=== PATIENT | male | born 1945 | race Asian ===

== ENCOUNTER 2021-07-06 10:39 | Inpatient (IN) | payer MEDICARE, BC ==
[~2021-07-06] VITALS: Ht 172.7 cm; Wt 74.0 kg
--- NOTE | 2021-07-06 10:43 | NUR ---
TO ER BED 9, BIBRA 839 FROM HOME C/O LOWER BACK PAIN AND FAILURE TO THRIVE PER EMS HE FELL IN THE TUB 4 MONTHS AGO. PT TOOK NORCO 10/ 1 HR CUSTOM CAR BUILDER, AAOX3, BREATHING EVEN AND NON LABORED, CONNECTED TO MONITOR, AWAITING MD MORTON
--- NOTE | 2021-07-06 11:03 | NUR ---
DR NEFF AT BEDSIDE FOR EVAL
--- NOTE | 2021-07-06 11:26 | NUR ---
COVID ANTIGEN SWAB DONE AND SENT TO THE LAB
[2021-07-06] MEDS ORDERED: HYDR-4076 PO (11:28)
[2021-07-06] MEDS ORDERED: ATOR40TA PO (11:28)
[2021-07-06] MEDS ORDERED: DILT180C66 PO (11:28)
[2021-07-06] MEDS ORDERED: APIX5TAB PO (11:28)
[2021-07-06] MEDS ORDERED: BRIM10DR EACHEYE (11:28)
--- NOTE | 2021-07-06 11:28 | NUR ---
URINE COLLECTED AND SENT TO LAB
[2021-07-06 11:59] LABS: BASOPHILS % (AUTO) 0.1 % (0.0-2.0); HEMATOCRIT 34 % (39-51); LYMPHOCYTES # (AUTO) 1.1 K/uL (0.8-4.8); LYMPHOCYTES % (AUTO) 8.8 % (20.0-44.0); MEAN CORPUSCULAR HGB CONC 33 g/dl (31.0-36.0); MEAN CORPUSCULAR VOLUME 89 fL (80-96); MONOCYTES # (AUTO) 0.8 K/uL (0.1-1.30); MONOCYTES % (AUTO) 5.8 % (2.0-12.0); NEUTROPHILS # (AUTO) 11.2 K/uL (1.8-8.9); NEUTROPHILS % (AUTO) 85.3 % (43.0-81.0); PLATELET COUNT (AUTO) 287 K/uL (150-450); RED BLOOD CELL COUNT(AUTO) 3.77 MIL/uL (4.5-6.0); WHITE BLOOD COUNT (AUTO) 13.1 K/uL (4.3-11.0)
[2021-07-06 12:01] LABS: BILIRUBIN,URINE NEGATIVE (NEGATIVE); COLOR,URINE ORANGE (YELLOW); LEUKOCYTE ESTERASE ,URINE TRACE (NEGATIVE); NITRITE, URINE NEGATIVE (NEGATIVE); PROTEIN,URINE TRACE mg/dl (NEGATIVE); UGLUCOSE NEGATIVE (NEGATIVE)
--- NOTE | 2021-07-06 12:10 | NUR ---
TAKEN TO CT
[2021-07-06 12:15] LABS: BACTERIA,URINE 4+ /HPF (None Seen); RBC,URINE 0-2 /HPF (0-2)
[2021-07-06 12:27] LABS: CALCIUM, SERUM 8.7 mg/dL (8.5-10.1); CREATININE 1.1 mg/dL (0.6-1.3); POTASSIUM 4.7 mmol/L (3.5-5.1)
[2021-07-06 12:33] LABS: ALBUMIN 2.1 g/dL (3.4-5.0); BILIRUBIN,DIRECT 0.4 mg/dL (0.0-0.2); BILIRUBIN,TOTAL 0.9 mg/dL (0.2-1.0); TOTAL PROTEIN, SERUM 7.6 g/dL (6.4-8.2)
--- NOTE | 2021-07-06 13:26 | NUR ---
TYLENOL 1000 MG PO ONCE PER DR NEFF. THE ORDER IS READ BACK, VERIFIED. NOTED AND CARRIED OUT.
[2021-07-06] MEDS ORDERED: ACETAMINOPHEN ES 500 MG TABLET ONE (13:29)
[2021-07-06] MEDS ORDERED: VANCOMYCIN 1 GM in IV D5W 250 ML IV ONE (13:30)
[2021-07-06] MEDS ORDERED: CEFEPIME 1 GM in IV D5W 50 ML IV ONE (13:30)
[2021-07-06] MEDS ORDERED: ACETAMINOPHEN ES 500 MG TABLET PO ONE (13:30)
[2021-07-06] MEDS ORDERED: IV NS 0.9% 500 ML BAG IV ONE ×2 (14:00→16:00)
--- NOTE | 2021-07-06 14:22 | NUR ---
PAGED EPIC HOSPICE RN.
--- NOTE | 2021-07-06 14:42 | NUR ---
PER HOUSE SUP NO ROOM AVAILABLE FOR ADMISSION.
[2021-07-06] MEDS ORDERED: ONDANSETRON HCL/PF 4 MG/2 ML VIAL IVP PRN (15:00)
[2021-07-06] MEDS: IV NS 0.9% 1,000 ML IV PRN ×2 (15:09→21:31)
--- NOTE | 2021-07-06 15:31 | NUR ---
PATIENT ALERT, TALKING TO HIS NEPHEW ON HIS CELLPHONE NEPHEW NAME HUNG [phone]
[2021-07-06] MEDS: CEFTRIAXONE 1 G in IV D5W 50 ML IV SCH (16:38)
[2021-07-06] MEDS: AZITHROMYCIN 500 MG in IV D5W 250 ML IV SCH (17:00)
--- NOTE | 2021-07-06 18:31 | NUR ---
ROOM 324-2
--- NOTE | 2021-07-06 18:54 | NUR ---
PER NURSING SUP TO GIVE REPORT AFTER CHANGE OF SHIFT
--- NOTE | 2021-07-06 19:43 | NUR ---
REPORT GIVEN TO ULICES Duggan RN FOR HERMELINDO
[2021-07-06 21:00] VITALS: BP 124/68
--- NOTE | 2021-07-06 21:00 | NUR ---
TELE/RN ADMITTING NOTE RECEIVED REPORT FROM TOOL WORKER FELICIA. PATIENT ARRIVED TO UNIT VIA GURNEY AND 2 STAFF MEMBERS. PATIENT IS BEING ADMITTED WITH DX OF SEPSIS. PATIENT IS ALERT AND ORIENTED X 2. ABLE TO MAKE NEEDS KNOWN. CONFUSED AT TIMES. ENDORSES MILD BACK PAIN - WILL ADMINISTER PRN PAIN MEDICATION PER MD ORDER. CONTINUES ON O2 3L VIA NC WITH NO S/SX OF RESPIRATORY DISTRESS NOTED. IV ACCESS TO RIGHT AC #18G INTACT, PATENT AND SALINE LOCKED. CONTINUES ON IV ABX. SKIN CHECK PERFORMED ON ADMISSION WITH NO SKIN ISSUES NOTED. TELE MONITOR APPLIED WITH CURRENT READING SR WITH BBB HR 90. ALL BELONGINGS AT PATIENT'S BEDSIDE. PATIENT ORIENTED TO ROOM, CALL LIGHT AND UNIT. BED ALARM ON FOR SAFETY. CALL LIGHT WITHIN REACH. ASPIRATION, FALL AND SAFETY PRECAUTIONS MAINTAINED. WILL CONTINUE TO MONITOR.
--- NOTE | 2021-07-06 21:13 | NUR ---
PT TRANFERRED TO 3W VIA ACLS PROTOCOL. VSS. ALL BELONGINGS WITH PT.
[2021-07-06 21:26] VITALS: BP 124/68
[2021-07-06] MEDS: ACETAMINOPHEN 325 MG TABLET PO PRN (21:31)
[2021-07-07 00:55] VITALS: BP 106/58
[2021-07-07 04:40] VITALS: BP 115/63
[2021-07-07 06:46] LABS: BASOPHILS % (AUTO) 0.4 % (0.0-2.0); EOSINOPHILS % (AUTO) 1.8 % (0.0-6.0); HEMATOCRIT 32 % (39-51); HEMOGLOBIN 10.3 g/dL (13.5-17.5); LYMPHOCYTES # (AUTO) 1.3 K/uL (0.8-4.8); LYMPHOCYTES % (AUTO) 10.5 % (20.0-44.0); MEAN CORPUSCULAR HGB CONC 32 g/dl (31.0-36.0); MEAN CORPUSCULAR VOLUME 91 fL (80-96); MONOCYTES # (AUTO) 0.8 K/uL (0.1-1.30); MONOCYTES % (AUTO) 6.7 % (2.0-12.0); NEUTROPHILS % (AUTO) 80.6 % (43.0-81.0); PLATELET COUNT (AUTO) 245 K/uL (150-450); RED BLOOD CELL COUNT(AUTO) 3.52 MIL/uL (4.5-6.0); WHITE BLOOD COUNT (AUTO) 12.5 K/uL (4.3-11.0)
--- NOTE | 2021-07-07 07:32 | NUR ---
URBAN PLANNING PROFESSOR OPENING NOTES RECEIVED PATIENT AWAKE IN BED. PATIENT IS ALERT AND ORIENTED TIMES 2. NO PAIN NOTED. NO SOB NOTED. NO DISTRESS NOTED. ON TELE MONITOR . NO ACUTE DISTRESS NOTED. IV ACCESS ON THE RIGHT AC # 18 INTACT. RUNNING NS AT 75 ML/HR. ALL SAFETY MEASURES IN PLACE. BED LOCKED IN THE LOWEST POSITION. CALL LIGHT AND TABLE IN EASY REACH. WILL CONTINUE TO MONITOR.
[2021-07-07 07:43] LABS: CALCIUM, SERUM 7.9 mg/dL (8.5-10.1); CREATININE 0.9 mg/dL (0.6-1.3); MAGNESIUM 2.2 mg/dL (1.8-2.4); POTASSIUM 4.7 mmol/L (3.5-5.1)
[2021-07-07 08:00] VITALS: BP 133/61
[2021-07-07] MEDS: ACETAMINOPHEN 325 MG TABLET PO PRN ×2 (11:56→20:51)
[2021-07-07 12:00] VITALS: BP 136/73
[2021-07-07] MEDS: hydrALAZINE HCL 25 MG TABLET PO SCH ×2 (13:52→17:03)
[2021-07-07] MEDS: DILTIAZEM HCL CD 180 MG PO SCH (13:53)
[2021-07-07] MEDS: HYDROCODONE/APAP 5/325MG TABLET PO PRN ×3 (13:56→23:40)
--- NOTE | 2021-07-07 15:10 | NUR ---
SS Note: Spoke with pt.'s nurse regarding pt.'s placement upon discharge. Pt. is able to go to [facility] once medically cleared [[phone], Geeat].
[2021-07-07 16:00] VITALS: BP 127/55
[2021-07-07] MEDS: CEFTRIAXONE 1 G in IV D5W 50 ML IV SCH (16:43)
[2021-07-07] MEDS: BRIMONIDINE TARTRATE OPHT SOLN 5 ML BOTTLE EACHEYE SCH (17:02)
[2021-07-07] MEDS: APIXABAN 5 MG TABLET PO SCH (17:04)
[2021-07-07] MEDS: AZITHROMYCIN 500 MG in IV D5W 250 ML IV SCH (17:23)
[2021-07-07] MEDS: ATORVASTATIN 40 MG TABLET PO SCH (17:45)
--- NOTE | 2021-07-07 19:30 | NUR ---
LEAD BUSINESS SYSTEMS ANALYST CLOSING NOTES PATIENT AWAKE IN BED. PATIENT IS ALERT AND ORIENTED TIMES 2. NO PAIN NOTED. NO SOB NOTED. NO DISTRESS NOTED. ON TELE MONITOR . NO ACUTE DISTRESS NOTED. IV ACCESS ON THE RIGHT AC # 18 INTACT. RUNNING NS AT 75 ML/HR. ALL DUE MEDS GIVEN ORDERED.ALL SAFETY MEASURES IN PLACE. BED LOCKED IN THE LOWEST POSITION. CALL LIGHT AND TABLE IN EASY REACH. WILL ENDORSE FOR HERMELINDO..
[2021-07-07 20:00] VITALS: BP 101/41
[2021-07-07] MEDS ORDERED: VANCOMYCIN 1.25 GM in IV D5W 250 ML IV ONE (21:00)
[2021-07-08] MEDS: HYDROCODONE/APAP 5/325MG TABLET PO PRN ×2 (05:17→09:29)
[2021-07-08] MEDS: IV NS 0.9% 1,000 ML IV PRN (05:17)
--- NOTE | 2021-07-08 06:20 | NUR ---
TEXT DR. PEREZ FOR MRI APPROVAL.
[2021-07-08 06:27] LABS: BASOPHILS # (AUTO) 0.1 K/uL (0.0-0.2); BASOPHILS % (AUTO) 0.7 % (0.0-2.0); EOSINOPHILS % (AUTO) 1.8 % (0.0-6.0); HEMATOCRIT 27 % (39-51); HEMOGLOBIN 8.9 g/dL (13.5-17.5); LYMPHOCYTES # (AUTO) 1.2 K/uL (0.8-4.8); MEAN CORPUSCULAR HGB CONC 33 g/dl (31.0-36.0); MEAN CORPUSCULAR VOLUME 89 fL (80-96); MONOCYTES # (AUTO) 0.6 K/uL (0.1-1.30); MONOCYTES % (AUTO) 6.6 % (2.0-12.0); NEUTROPHILS # (AUTO) 6.6 K/uL (1.8-8.9); NEUTROPHILS % (AUTO) 76.9 % (43.0-81.0); PLATELET COUNT (AUTO) 243 K/uL (150-450); RED BLOOD CELL COUNT(AUTO) 3.01 MIL/uL (4.5-6.0); WHITE BLOOD COUNT (AUTO) 8.6 K/uL (4.3-11.0)
--- NOTE | 2021-07-08 06:30 | NUR ---
TELE/RN CLOSING NOTE PATIENT CURRENTLY RESTING IN BED. ALERT AND ORIENTED X 2. ABLE TO MAKE NEEDS KNOWN. DENIES PAIN AT THIS TIME. CONTINUES ON O2 3L VIA NC WITH NO S/SX OF RESPIRATORY DISTRESS NOTED. IV ACCESS TO RIGHT AC #18G INTACT AND PATENT. CONTINUES ON IVF NS @ 75ML/HR. CONTINUES ON IV ABX. CONTINUES ON NPO STATUS FOR MRI THIS AM. CALL LIGHT WITHIN REACH. ASPIRATION, FALL AND SAFETY PRECAUTIONS MAINTAINED. WILL ENDORSE PLAN OF CARE TO ONCOMING SHIFT.
--- NOTE | 2021-07-08 06:32 | NUR ---
MRI APPROVED,INSTRUMENT MAN NOTIFIED
[2021-07-08 06:58] LABS: CALCIUM, SERUM 7.5 mg/dL (8.5-10.1); CARBON DIOXIDE 23 mmol/L (21-32); CHLORIDE 104 mmol/L (98-107); CREATININE 0.8 mg/dL (0.6-1.3); GLUCOSE 92 mg/dL (74-106); PHOSPHORUS 3.2 mg/dL (2.5-4.9); POTASSIUM 4.1 mmol/L (3.5-5.1); SODIUM SERUM 133 mmol/L (136-145); UREA NITROGEN, BLOOD 18 mg/dL (7-18)
--- NOTE | 2021-07-08 07:25 | NUR ---
INJECTION MOLD TOOLING TECHNICIAN OPENING NOTE RECEIVED PATIENT ASLEEP IN BED, EASILY AROUSE. ALERT AND ORIENTED X 2. ABLE TO MAKE NEEDS KNOWN. ON O2 AT 3L VIA NC WITH NO S/SX OF RESPIRATORY DISTRESS NOTED. BREATHING UNLABORED. ON TELE MONITOR WITH CURRENT READING OF NORMAL SR, HR 74. IV ACCESS TO RIGHT AC #18G INTACT AND PATENT WITH NS @ 75ML/HR. PT ON NPO STATUS FOR MRI THIS AM. SAFETY MEASURES IN PLACE: BED IN LOWEST AND LOCKED POSITION, SIDE RAILS UP X2, CALL LIGHT WITHIN REACH. WILL CONTINUE MONITOR PT AND WITH PLAN OF CARE.
[2021-07-08 08:00] VITALS: BP 116/60
[2021-07-08] MEDS: DILTIAZEM HCL CD 180 MG PO SCH (09:24)
[2021-07-08] MEDS: hydrALAZINE HCL 25 MG TABLET PO SCH ×2 (09:25→17:11)
[2021-07-08] MEDS: APIXABAN 5 MG TABLET PO SCH ×2 (09:26→17:13)
[2021-07-08] MEDS: VANCOMYCIN 0.75 GM in IV D5W 250 ML IV SCH ×2 (09:32→21:09)
[2021-07-08] MEDS: BRIMONIDINE TARTRATE OPHT SOLN 5 ML BOTTLE EACHEYE SCH ×2 (09:48→17:14)
[2021-07-08 12:00] VITALS: BP 125/62
[2021-07-08 16:00] VITALS: BP 140/64
[2021-07-08] MEDS: ACETAMINOPHEN 325 MG TABLET PO PRN (16:02)
[2021-07-08] MEDS: CEFTRIAXONE 1 G in IV D5W 50 ML IV SCH (16:02)
[2021-07-08] MEDS ORDERED: GADOTERATE MEGLUMINE 10 MMOL/20 ML VIAL IV ONE (17:10)
[2021-07-08] MEDS: ATORVASTATIN 40 MG TABLET PO SCH (17:11)
--- NOTE | 2021-07-08 19:34 | NUR ---
PROPERTY MANAGEMENT ASSISTANT CLOSING NOTE PATIENT ASLEEP IN BED, EASILY AROUSE. ALERT AND ORIENTED X 2. ABLE TO MAKE NEEDS KNOWN. ON O2 AT 3L VIA NC WITH NO S/SX OF RESPIRATORY DISTRESS NOTED. BREATHING UNLABORED. ON TELE MONITOR WITH CURRENT READING OF NORMAL SR, HR 80. IV ACCESS TO RIGHT AC #18G INTACT AND PATENT WITH NS @ 75ML/HR. TURNED AND REPOSITIONED PT Q2HRS AND NEEDED. ALL NEEDS ATTENDED. SAFETY MEASURES IN PLACE: BED IN LOWEST AND LOCKED POSITION, SIDE RAILS UP X2, CALL LIGHT WITHIN REACH. ENDORSED TO BLOWING WEASAND NURSE FOR CONTINUITY OF CARE.
--- NOTE | 2021-07-08 19:51 | NUR ---
MANAGER HRIS OPENING NOTES: RECEIVED PATIENT SLEEP IN BED COMFORTABLY, BED IN LOW POSITION, CALL LIGHTS WITHIN REACH, NO COMPLAIN OF PAIN AND DISCOMFORT AT THIS TIME, WITH IV LINE AT RAC#18 WITH ONGOING NSS @75ML PER HOUR INFUSING WELL, ON ROOM AIR AT 3LPM SATURATING WELL, ON TELE MONITORING SR-97 WITH PVS, PATIENT KEPT CLEAN AND DRY ALL NEEDS MET WILL CONTINUE TO MONITOR.
[2021-07-08 20:00] VITALS: BP_SYST 124; BP_SYST 129; BP_SYST 132; BP_DIAS 62; BP_DIAS 67
[2021-07-09] VITALS: BP 132/67
[2021-07-09 00:18] VITALS: BP 132/67
[2021-07-09] MEDS: IV NS 0.9% 1,000 ML IV PRN ×2 (00:54→16:53)
[2021-07-09 04:00] VITALS: BP 135/98
--- NOTE | 2021-07-09 06:46 | NUR ---
SHEARING MACHINE OPERATOR CLOSING NOTES: PATIENT SLEEP IN BED COMFORTABLY, AROUSABLE TO VERBAL STIMULI, BED IN LOW POSITION, CALL LIGHTS WITHIN REACH, NO COMPLAIN OF PAIN AND DISCOMFORT AT THIS TIME, ON TELE MONITORING WITH NSR, WITH IV LINE AT RAC#20 WITH ONGOING NSS@75ML PER HOUR INFUSING WELL, PATIENT ON 02 INHALATION AT 3LPM SATURATING WELL, PATIENT KEPT CLEAN AND DRY ALL NEEDS MET ENDORSE TO INCOMING SHIFT.
[2021-07-09 07:22] LABS: BASOPHILS % (AUTO) 0.3 % (0.0-2.0); EOSINOPHILS % (AUTO) 0.1 % (0.0-6.0); HEMATOCRIT 29 % (39-51); HEMOGLOBIN 9.4 g/dL (13.5-17.5); LYMPHOCYTES # (AUTO) 0.9 K/uL (0.8-4.8); LYMPHOCYTES % (AUTO) 7.9 % (20.0-44.0); MEAN CORPUSCULAR HGB CONC 33 g/dl (31.0-36.0); MEAN CORPUSCULAR VOLUME 89 fL (80-96); MONOCYTES # (AUTO) 0.6 K/uL (0.1-1.30); MONOCYTES % (AUTO) 5.5 % (2.0-12.0); NEUTROPHILS # (AUTO) 10.1 K/uL (1.8-8.9); NEUTROPHILS % (AUTO) 86.2 % (43.0-81.0); PLATELET COUNT (AUTO) 263 K/uL (150-450); RED BLOOD CELL COUNT(AUTO) 3.23 MIL/uL (4.5-6.0); WHITE BLOOD COUNT (AUTO) 11.7 K/uL (4.3-11.0)
[2021-07-09 07:32] LABS: CARBON DIOXIDE 21 mmol/L (21-32); CHLORIDE 101 mmol/L (98-107); CREATININE 0.8 mg/dL (0.6-1.3); GLUCOSE 90 mg/dL (74-106); MAGNESIUM 2.1 mg/dL (1.8-2.4); PHOSPHORUS 3.4 mg/dL (2.5-4.9); SODIUM SERUM 130 mmol/L (136-145); UREA NITROGEN, BLOOD 15 mg/dL (7-18)
--- NOTE | 2021-07-09 08:04 | NUR ---
RN OPENING NOTE PATIENT RECEIVED IN BED, AO X 2. ABLE TO RESPONDS ALL STIMULI. IN NO ACUTE DISTRESS NOTED. RESPIRATORY EVEN AND UNLABORED ON OXYGEN AT 3Ls. SKIN IS WARM TO TOUCH, KEEP CLEAN/DRY. KEPT ELEVATED HOB FOR ENSURE AIRWAY AND ASPIRATION PRECAUTION, ALSO LOWEST POSITION OF THE BED, S/R UP X 3, BED ALARM IS ON AT ALL THE TIMES. ALL SAFETY PRECAUTION APPLIED. CALL LIGHT WITHIN REACH, WILL CONTINUE TO MONITOR.
[2021-07-09] MEDS: hydrALAZINE HCL 25 MG TABLET PO SCH ×2 (08:37→17:04)
[2021-07-09] MEDS: BRIMONIDINE TARTRATE OPHT SOLN 5 ML BOTTLE EACHEYE SCH ×2 (08:37→17:07)
[2021-07-09] MEDS: DILTIAZEM HCL CD 180 MG PO SCH (08:38)
[2021-07-09] MEDS: APIXABAN 5 MG TABLET PO SCH ×2 (08:39→17:05)
[2021-07-09] MEDS: VANCOMYCIN 0.75 GM in IV D5W 250 ML IV SCH (09:00)
--- NOTE | 2021-07-09 14:00 | NUR ---
PATIENT HAVING PVC SINCE YESTERDAY, HIGHEST 21/MIN. LATEST BP-128/68, P-85, INFORMED MD, NO NEW ORDER AT THIS TIME. WILL CONTINUE TO MONITOR CLOSELY.
[2021-07-09] MEDS ORDERED: AMPICILLIN 2 GM in IV NS 0.9% 50 ML IV SCH (17:00)
[2021-07-09] MEDS: ATORVASTATIN 40 MG TABLET PO SCH (17:04)
--- NOTE | 2021-07-09 18:05 | NUR ---
RN CLOSING NOTE PATIENT IN BED, IN NO ACUTE DISTRESS OBSERVED. SKIN IS WARM TO TOUCH KEEP CLEAN/DRY, INTACT IV SITE RUNNING NS AT 75 ML/HR. RESPIRATORY EVEN AND UNLABORED ON ROOM AIR. KEPT ELEVATED HOB FOR ENSURE AIRWAY AND ASPIRATION PRECAUTION, AND LOWEST POSITION OF THE BED FOR SAFETY. CALL LIGHT WITHIN REACH, WILL ENDORSE TO BUILDING APPRAISER.
[2021-07-09] MEDS: AMPICILLIN SODIUM INJ 1 GM in IV NS 50 ML IV SCH (18:47)
[2021-07-09 20:00] VITALS: BP 122/68
--- NOTE | 2021-07-09 20:17 | NUR ---
CLOTH HAND OPENING NOTES: RECEIVED PATIENT AWAKE IN BED, BED IN LOW POSITION, CALL LIGHTS WITHIN REACH, NO COMPLAIN OF PAIN AND DISCOMFORT AT THIS TIME, PATIENT IS A/OX2 ON BED REST WITH IV LINE AT R WRIST #22 WITH ONGOING NSS@75ML/HR INFUSING WELL, PATIENT KEPT CLEAN AND DRY ALL NEEDS MET WILL CONTINUE TO MONITOR.
[2021-07-09] MEDS ORDERED: VANCOMYCIN 500 MG in IV D5W 100ml IV SCH (21:00)
[2021-07-10] VITALS: BP 127/57
[2021-07-10] MEDS: AMPICILLIN SODIUM INJ 1 GM in IV NS 50 ML IV SCH ×5 (00:16→23:37)
[2021-07-10] MEDS: MORPHINE SULFATE INJ 2 MG/ML DISP.SYRIN IV PRN ×2 (03:26→16:50)
[2021-07-10 04:00] VITALS: BP 130/62
--- NOTE | 2021-07-10 06:44 | NUR ---
DOWNSTREAM BIOMANUFACTURING TECHNICIAN CLOSING NOTES: PATIENT SLEEP IN BED COMFORTABLY, BED IN LOW POSITION, CALL LIGHTS WITHIN REACH, NO COMPLAIN OF PAIN AND DISCOMFORT AT THIS TIME, ON TELE MONITORING,SR-97 WITH BBB AND PVC, WITH IV LINE AT RIGHT WRIST#22 WITH ONGOING NSS@75ML/HR INFUSING WELL, ON O2 INHALATION AT 3LPM SATURATING WELL, PATIENT KEPT CLEAN AND DRY ALL NEEDS MET ENDORSE TO INCOMING SHIFT.
[2021-07-10 07:01] LABS: CALCIUM, SERUM 7.6 mg/dL (8.5-10.1); CARBON DIOXIDE 22 mmol/L (21-32); CHLORIDE 101 mmol/L (98-107); CREATININE 0.8 mg/dL (0.6-1.3); GLUCOSE 81 mg/dL (74-106); POTASSIUM 3.9 mmol/L (3.5-5.1); SODIUM SERUM 133 mmol/L (136-145); UREA NITROGEN, BLOOD 15 mg/dL (7-18)
--- NOTE | 2021-07-10 07:57 | NUR ---
RN OPENING NOTE PATIENT RECEIVED IN BED, AO X 1-2. ABLE TO RESPONDS ALL STIMULI. IN NO ACUTE DISTRESS NOTED. RESPIRATORY EVEN AND UNLABORED ON OXYGEN AT 3Ls VIA NC, BUT PATIENT KEPT REMOVING OXYGEN. SKIN IS WARM TO TOUCH, KEEP CLEAN/DRY. KEPT ELEVATED HOB FOR ENSURE AIRWAY AND ASPIRATION PRECAUTION, ALSO LOWEST POSITION OF THE BED, S/R UP X 3, BED ALARM IS ON AT ALL THE TIMES. ALL SAFETY PRECAUTION APPLIED. CALL LIGHT WITHIN REACH, WILL CONTINUE TO MONITOR.
[2021-07-10] MEDS: DILTIAZEM HCL CD 180 MG PO SCH (09:00)
[2021-07-10] MEDS: hydrALAZINE HCL 25 MG TABLET PO SCH ×2 (09:01→16:45)
[2021-07-10] MEDS: APIXABAN 5 MG TABLET PO SCH ×2 (09:03→16:46)
[2021-07-10] MEDS: BRIMONIDINE TARTRATE OPHT SOLN 5 ML BOTTLE EACHEYE SCH ×2 (09:04→17:09)
--- NOTE | 2021-07-10 12:03 | NUR ---
PATIENT HAS PICCLINE ORDER FOR MULTIPLE IV ABX TREATMENT. SING OF CONSENT OBTAINED BY DAVIDE RUANO ON THE PHONE, PLUS TWO RNS WITNESS.
--- NOTE | 2021-07-10 15:41 | NUR ---
PATIENT OBTAINED PICCLINE BY SHERI, NO ACTIVE BLEEDING OBSERVED, GOOD FLASH WITH NS.
[2021-07-10] MEDS: ENSURE ENLIVE 237 ML LIQUID (VANILLA) PO SCH (16:59)
[2021-07-10] MEDS: ATORVASTATIN 40 MG TABLET PO SCH (17:20)
--- NOTE | 2021-07-10 18:00 | NUR ---
RN CLOSING NOTE PATIENT IN BED RESTING, IN NO ACUTE DISTRESS OBSERVED. SKIN IS WARM TO TOUCH KEEP CLEAN/DRY, INTACT NEW PICC LINE. RESPIRATORY EVEN AND UNLABORED ON ROOM AIR. KEPT ELEVATED HOB FOR ENSURE AIRWAY AND ASPIRATION PRECAUTION, AND LOWEST POSITION OF THE BED FOR SAFETY. CALL LIGHT WITHIN REACH, WILL ENDORSE TO VBA PROGRAMMER.
--- NOTE | 2021-07-10 19:45 | NUR ---
READING SPECIALIST NOTES RECEIVED ON BED WITH HOB ELEVATED,BREATHING NON LABORED,A/O X1-2,O2 3L/NC IN USED ON AND OFF,O2 SAT 98%.PICC LINE RIGHT UPPER ARM INTACT AND PATENT.NO COMPLAINTS OF PAIN AT THE MOMENT.REPOSITION PER PROTOCOL,CALL LIGHT IN REACH,NEEDS ANTICIPATED.
[2021-07-10 20:00] VITALS: BP 120/62
[2021-07-10] MEDS: HYDROCODONE/APAP 5/325MG TABLET PO PRN (22:49)
--- NOTE | 2021-07-10 22:49 | NUR ---
LIFT MANAGER NOTES AWAKE,C/O LOWER BACK PAIN 5/10 ON PAIN SCALE,NORCO 5/325MG,1 TAB,CRUSHED AND GIVEN PO WITH APPLE SAUCE,TAKEN WELL.NEGATIVE FOR ASPIRATION
[2021-07-11] VITALS: BP 111/56
[2021-07-11] MEDS: MORPHINE SULFATE INJ 2 MG/ML DISP.SYRIN IV PRN (03:57)
--- NOTE | 2021-07-11 03:57 | NUR ---
HEALTH CENTER MANAGER NOTES C/O GENERALIZED PAIN 8/10 ON PAIN SCALE,MORPHINE 2MG IV GIVEN ORDERED.
[2021-07-11 04:00] VITALS: BP 123/68
[2021-07-11] MEDS: AMPICILLIN SODIUM INJ 1 GM in IV NS 50 ML IV SCH ×3 (05:20→17:16)
[2021-07-11 06:17] LABS: BASOPHILS % (AUTO) 0.4 % (0.0-2.0); EOSINOPHILS % (AUTO) 1.4 % (0.0-6.0); HEMATOCRIT 28 % (39-51); HEMOGLOBIN 9.3 g/dL (13.5-17.5); LYMPHOCYTES # (AUTO) 1.5 K/uL (0.8-4.8); LYMPHOCYTES % (AUTO) 15.2 % (20.0-44.0); MEAN CORPUSCULAR HGB CONC 33 g/dl (31.0-36.0); MEAN CORPUSCULAR VOLUME 89 fL (80-96); MONOCYTES # (AUTO) 0.9 K/uL (0.1-1.30); MONOCYTES % (AUTO) 8.7 % (2.0-12.0); NEUTROPHILS # (AUTO) 7.5 K/uL (1.8-8.9); NEUTROPHILS % (AUTO) 74.3 % (43.0-81.0); PLATELET COUNT (AUTO) 219 K/uL (150-450); RED BLOOD CELL COUNT(AUTO) 3.15 MIL/uL (4.5-6.0); WHITE BLOOD COUNT (AUTO) 10.1 K/uL (4.3-11.0)
--- NOTE | 2021-07-11 06:37 | NUR ---
PICK UP AND DELIVERY DRIVER NOTES LAYING ON BED,PAIN MANAGEMENT EFFECTIVE,,CALL LIGHT IN REACH,NEEDS ATTENDED.IN NO ACUTE DISTRESS.
[2021-07-11 06:53] LABS: CALCIUM, SERUM 7.6 mg/dL (8.5-10.1); CARBON DIOXIDE 23 mmol/L (21-32); CHLORIDE 103 mmol/L (98-107); CREATININE 0.8 mg/dL (0.6-1.3); GLUCOSE 128 mg/dL (74-106); POTASSIUM 3.7 mmol/L (3.5-5.1); SODIUM SERUM 132 mmol/L (136-145); UREA NITROGEN, BLOOD 16 mg/dL (7-18)
--- NOTE | 2021-07-11 07:13 | NUR ---
SCENARIO WRITER OPENING NOTES RECEIVED PATIENT AWAKE IN BED IN NO ACUTE SIGNS OF DISTRESS. AO X 1-2. ABLE TO COMMUNICATE VERBALLY, DENIES PAIN OR ANY DISCOMFORTS AT THIS TIME. ON 02 VIA N/C @ 3LPM, RESPIRATORY EVEN AND UNLABORED. ON TELE-MONITOR WITH CURRENT READING OF NSR WITH BBB'S AND DARIUSEMKRYSTYNA, HR 83, NO C/O CARDIAC DISTRESS VOICED AT THIS TIME. SARAH PICC LINE INTACT WITH DRESSING C/D/I. SAFETY MEASURES IN PLACE: BED IN LOWEST LOCKED POSITION, S/R UP X 3, BED ALARM ON AND CALL LIGHT WITHIN REACH. WILL CONTINUE TO MONITOR PT.
[2021-07-11] MEDS: ENSURE ENLIVE 237 ML LIQUID (VANILLA) PO SCH ×2 (07:55→17:18)
[2021-07-11] MEDS: HYDROCODONE/APAP 5/325MG TABLET PO PRN (08:19)
[2021-07-11] MEDS: hydrALAZINE HCL 25 MG TABLET PO SCH ×2 (08:20→16:39)
[2021-07-11] MEDS: DILTIAZEM HCL CD 180 MG PO SCH (08:20)
[2021-07-11] MEDS: APIXABAN 5 MG TABLET PO SCH ×2 (08:21→16:40)
[2021-07-11] MEDS: BRIMONIDINE TARTRATE OPHT SOLN 5 ML BOTTLE EACHEYE SCH ×2 (08:22→16:39)
--- NOTE | 2021-07-11 08:26 | NUR ---
RN NOTES PT C/O ACHING LOWER BACK PAIN, 7/10 SCALE. PRN NORCO 5/325MG PO ADMINISTERED AT 0819. WILL CONTINUE TO MONITOR AND REASSESS PT.
[2021-07-11 08:45] VITALS: BP 137/80
[2021-07-11 12:02] VITALS: BP 138/65
[2021-07-11 16:31] VITALS: BP 134/70
[2021-07-11 16:39] VITALS: BP 134/70
[2021-07-11] MEDS: ATORVASTATIN 40 MG TABLET PO SCH (17:18)
[2021-07-11] MEDS ORDERED: Hydrocodone/Apap 5/325MG PO (17:32)
[2021-07-11] MEDS ORDERED: AMPI1VIA26 IJ (17:32)
--- NOTE | 2021-07-11 18:44 | NUR ---
DIRECTOR OF EVENT MARKETING CLOSING NOTES PATIENT IN BED ASLEEP AT TIS TIME, EASILY AWAKENS. AO X 2. ABLE TO MAKE NEEDS KNOWN. ON 02 VIA N/C @ 2LPM, RESPIRATORY EVEN AND UNLABORED. PT KEEPS REMOVING 02 FROM NOSE. ON TELE-MONITOR WITH CURRENT READING OF NSR WITH PVC'S, HR ON THE 90'S, NO C/O CARDIAC DISTRESS VOICED DURING SHIFT. SARAH PICC LINE INTACT, PATENT AND FLUSHES WELL. ALL NEEDS AND CARE PROVIDED WELL. PT REFUSED TO BE REPOSITIONED DURING SHIFT. SAFETY MEASURES KEPT IN PLACE: BED IN LOWEST LOCKED POSITION, S/R UP X 3, BED ALARM ON AND CALL LIGHT WITHIN REACH. WILL PT FOR DISCHARGE TO [facility], PICK-UP TIME BY AM [facility]. CALLED AND REPORT GIVEN TO RICHARDSON MORAES OF [facility] AND STATED THAT PT WILL GO TO RM [id number]. WILL ENDORSE TO TRAVERTINE INSTALLER NURSE.
--- NOTE | 2021-07-11 19:16 | NUR ---
ORDER FILLERCORRECTION OFFICER [place] OR [place] JAIL NOTES PATIENT LYING IN BED AWAKE. A/O X2. NO C/O PAIN AT THIS TIME. NOT IN APPARENT DISTRESS. HAS O2 AT 2 LPM VIA NASAL CANULA. HAS RIGHT UPPER ARM PICC LINE. DRESSING CLEAN AND INTACT. P/U BY 3 MALE EMT IN STABLE CONDITION AND INSTRUCTIONS GIVEN. BEING TRANSFERRED TO [facility]. ALL BELONGINGS ACCOUNTED FOR.
== END 2021-07-11 19:20 | DRG 871 ==
LOC: EDSEX 10:41 → ER 10:41 → EDBD 15:19 → TRANSITION 15:19 → MED 18:38 → TELE 21:13
PROVIDERS: ADMIT Nurse Practitioner Acute Care; ATTEND Internal Medicine
PROC: 02HV33Z Insertion of Infusion Device into Superior Vena Cava, Percutaneous Approach (ICD-10-PCS; principal; 2021-07-10)
PROC: B548ZZA Ultrasonography of Superior Vena Cava, Guidance (ICD-10-PCS; 2021-07-10)
DX: A41.81 Sepsis due to Enterococcus (principal); G93.41 Metabolic encephalopathy; G06.1 Intraspinal abscess and granuloma; I62.03 Nontraumatic chronic subdural hemorrhage; E44.0 Moderate protein-calorie malnutrition; D68.59 Other primary thrombophilia; E87.1 Hypo-osmolality and hyponatremia; N39.0 Urinary tract infection, site not specified; N17.9 Acute kidney failure, unspecified; G96.08 Other cranial cerebrospinal fluid leak; M48.56XA Collapsed vertebra, not elsewhere classified, lumbar region, initial encounter for fracture; N12 Tubulo-interstitial nephritis, not specified as acute or chronic; Z16.35 Resistance to multiple antimicrobial drugs; M60.08 Infective myositis, other site; E86.0 Dehydration; I10 Essential (primary) hypertension; Z20.822 Contact with and (suspected) exposure to COVID-19; Z98.61 Coronary angioplasty status; Z79.01 Long term (current) use of anticoagulants; Z79.899 Other long term (current) drug therapy; E86.1 Hypovolemia; K76.1 Chronic passive congestion of liver; F10.10 Alcohol abuse, uncomplicated; Y90.9 Presence of alcohol in blood, level not specified; E88.09 Other disorders of plasma-protein metabolism, not elsewhere classified; Z74.09 Other reduced mobility; G89.29 Other chronic pain; M51.36 Other intervertebral disc degeneration, lumbar region; M48.07 Spinal stenosis, lumbosacral region; M43.17 Spondylolisthesis, lumbosacral region; Z87.440 Personal history of urinary (tract) infections; Z98.1 Arthrodesis status
CPT/HCPCS: 36415; 36569; 70450-TC; 71045-TC; 72131-TC; 72158-TC; 80048-TC; 80076-TC; 80202-TC; 81001; 82140-TC; 83605-TC; 83690-TC; 83735-TC; 84100-TC; 85025-TC; 85652-TC; 86140-TC; 87040-TC; 87081-TC; 87086-TC; 87186-TC; 97112-TC; 97530-TC; A9575; C9803; G0378; J0290; J0456; J0692; J0696; J2270; J3370; J7030; J7040; J7042; J7050; J7060

== ENCOUNTER 2021-09-20 20:12 | Inpatient (IN) | payer MEDICARE, BC ==
[~2021-09-20] VITALS: Ht 172.7 cm; Wt 68.5 kg
[~2021-09-20 20:12] MED LIST: AMPI1VIA26 IJ; APIX5TAB PO; ATOR40TA PO; BRIM10DR EACHEYE; DILT180C66 PO; HYDR-4076 PO; Hydrocodone/Apap 5/325MG PO
--- NOTE | 2021-09-20 21:15 | NUR ---
[id number]. FEVER, TACHYCARDIA AND POSITIVE BLOOD CULTURE. SENT BY PMD. PLACED ON BED, RESPONDING TO VERBAL STIMULI, AAOX3, WARM TO TOUCH.
--- NOTE | 2021-09-20 21:16 | NUR ---
BLOOD DRAWN SWAB FOR COVID19 SENT TO LAB
--- NOTE | 2021-09-20 21:18 | NUR ---
X-RAY TECH AT BED SIDE
[2021-09-20] MEDS ORDERED: VANCOMYCIN 1 GM in IV D5W 250 ML IV ONE (21:30)
[2021-09-20] MEDS ORDERED: NS 0.9% IV ONE (21:30)
[2021-09-20] MEDS ORDERED: ACETAMINOPHEN 650 MG/SUPP.RECT RC ONE ×2 (21:30→21:45)
[2021-09-20] MEDS ORDERED: CEFEPIME 1 GM in IV D5W 50 ML IV ONE (21:30)
[2021-09-20] MEDS ORDERED: VANCOMYCIN 1 GM VIAL ONE (21:44)
[2021-09-20] MEDS ORDERED: CEFEPIME 1 GM VIAL ONE (21:44)
[2021-09-20 21:47] LABS: BASOPHILS % (AUTO) 0.2 % (0.0-2.0); EOSINOPHILS % (AUTO) 0.1 % (0.0-6.0); HEMATOCRIT 32 % (39-51); HEMOGLOBIN 10.2 g/dL (13.5-17.5); LYMPHOCYTES # (AUTO) 0.8 K/uL (0.8-4.8); LYMPHOCYTES % (AUTO) 6.8 % (20.0-44.0); MEAN CORPUSCULAR HGB CONC 32 g/dl (31.0-36.0); MEAN CORPUSCULAR VOLUME 88 fL (80-96); MONOCYTES # (AUTO) 0.7 K/uL (0.1-1.30); MONOCYTES % (AUTO) 6.1 % (2.0-12.0); NEUTROPHILS # (AUTO) 9.7 K/uL (1.8-8.9); NEUTROPHILS % (AUTO) 86.8 % (43.0-81.0); PLATELET COUNT (AUTO) 210 K/uL (150-450); RED BLOOD CELL COUNT(AUTO) 3.61 MIL/uL (4.5-6.0); WHITE BLOOD COUNT (AUTO) 11.2 K/uL (4.3-11.0)
[2021-09-20 22:11] LABS: CALCIUM, SERUM 8.5 mg/dL (8.5-10.1); CARBON DIOXIDE 26 mmol/L (21-32); CHLORIDE 100 mmol/L (98-107); CREATININE 0.9 mg/dL (0.6-1.3); GLUCOSE 158 mg/dL (74-106); POTASSIUM 3.4 mmol/L (3.5-5.1); SODIUM SERUM 134 mmol/L (136-145); UREA NITROGEN, BLOOD 28 mg/dL (7-18)
[2021-09-20 22:16] LABS: ALANINE AMINOTRANSFERASE 37 U/L (12-78); ALBUMIN 2.1 g/dL (3.4-5.0); ALKALINE PHOSPHATASE 103 U/L (46-116); ASPARTATE AMINOTRANSFERASE 46 U/L (15-37); BILIRUBIN,DIRECT 0.2 mg/dL (0.0-0.2); BILIRUBIN,TOTAL 0.5 mg/dL (0.2-1.0); TOTAL PROTEIN, SERUM 7.4 g/dL (6.4-8.2)
--- NOTE | 2021-09-20 22:56 | NUR ---
EPIC PAGED PER DR MCNEILL.
[2021-09-21] MEDS ORDERED: MORPHINE SULFATE INJ 2 MG/ML DISP.SYRIN IV PRN (00:30)
[2021-09-21] MEDS ORDERED: Z GUARD REMEDY 4 OZ OINT TP PRN (00:30)
[2021-09-21] MEDS ORDERED: ACETAMINOPHEN 325 MG TABLET PO PRN (00:30)
[2021-09-21] MEDS ORDERED: ONDANSETRON HCL/PF 4 MG/2 ML VIAL IVP PRN (00:30)
[2021-09-21] MEDS ORDERED: HYDROCODONE/APAP 5/325MG TABLET PO PRN (00:30)
[2021-09-21] MEDS ORDERED: MAGNESIUM HYDROXIDE 30 ML UDC PO PRN (00:30)
--- NOTE | 2021-09-21 03:12 | NUR ---
RN notes Received report from CECILIA Miranda.
--- NOTE | 2021-09-21 03:12 | NUR ---
REPORT GIVEN TO CECILIA HENRY
--- NOTE | 2021-09-21 03:40 | NUR ---
admissions evaluator notes Received Pt from CECILIA Miranda. Pt arrived with ACLS protocol. Pt is alert and orientedX3. On 2 L NC. No S/s of distress noted. VS is stable. Tele monitor showed Sr with BBB hr at 82. IV site at LAC# 20 is clean, intact and flushes well. IV site at L hand # 20 is clean, intact and flushes well, SL. Skin assessment is done and performed and pictures are taken and placed at Pt's chart. Pt's belonging was checked by CAITIE Donovan and signed by Pt. [place] Pt to the room and the use of call light. Pt verbalized understanding. Safety precautions is maintained. Bed at low position, brakes locked, side rails upX3, hob elevated, bed alarm is on an call light is within reach. Will continue to monitor.
--- NOTE | 2021-09-21 03:44 | NUR ---
TRANSFERRED PT TO RM [id number]
[2021-09-21 04:00] VITALS: BP 127/58
[2021-09-21] MEDS: IV NS 0.9% 1,000 ML IV PRN ×2 (04:25→22:32)
--- NOTE | 2021-09-21 06:30 | NUR ---
RN closing notes Pt is resting in bed comfortably. Pt is alert and orientedX3 and forget easily. On 2 L NC. No SOB. No S/s of distress noted. VS is stable. Tele monitor showed Sr with BBB hr at 83. IV site at LAC# 20 is clean, intact and infusing well NS@ 75 ml/hr. IV site at L hand # 20 is clean, intact and flushes well, SL. Kept Pt clean, dry and comfortable. Safety precautions is maintained. Bed at low position, brakes locked, side rails upX3, hob elevated, bed alarm is on an call light is within reach. Will endorse to am nurse for HERMELINDO.
--- NOTE | 2021-09-21 07:26 | NUR ---
DIRECTOR HR COMMUNICATIONS OPENING NOTES RECEIVED PT IN BED AWAKE. A/O X3, ABLE TO MAKE NEEDS KNOWN. ON O2 AT 2L/MIN VIA NASAL CANNULA, TOLERATING WELL. NO SOB NOTED. NOT IN ANY SIGN OF RESPIRATORY DISTRESS. ON CARDIAC TELE MONITOR WITH CURRENT READING SINUS RHYTHM WITH BBB, HR 80. NO C/O CARDIAC DISTRESS VOICED AT THIS TIME. IV ACCESS ON L HAND G #20 SALINE LOCK, INTACT AND PATENT AND LAC G # 20 WITH NS INFUSING AT 75ML/HR. SAFETY MEASURES IN PLACE: BED IN LOWEST AND LOCKED POSITION, SIDE RAILS UP X2, AND CALL LIGHT WITHIN REACH. WILL CONTINUE TO MONITOR PT.
[2021-09-21] MEDS: PANTOPRAZOLE 40 MG TABLET.DR PO SCH (07:54)
[2021-09-21 08:07] LABS: BASOPHILS % (AUTO) 0.2 % (0.0-2.0); EOSINOPHILS % (AUTO) 0.3 % (0.0-6.0); HEMATOCRIT 28 % (39-51); LYMPHOCYTES # (AUTO) 1.2 K/uL (0.8-4.8); LYMPHOCYTES % (AUTO) 11.7 % (20.0-44.0); MEAN CORPUSCULAR HGB CONC 33 g/dl (31.0-36.0); MEAN CORPUSCULAR VOLUME 88 fL (80-96); MONOCYTES % (AUTO) 9.4 % (2.0-12.0); NEUTROPHILS # (AUTO) 8.1 K/uL (1.8-8.9); NEUTROPHILS % (AUTO) 78.4 % (43.0-81.0); PLATELET COUNT (AUTO) 171 K/uL (150-450); RED BLOOD CELL COUNT(AUTO) 3.13 MIL/uL (4.5-6.0); WHITE BLOOD COUNT (AUTO) 10.4 K/uL (4.3-11.0)
[2021-09-21 08:38] LABS: CALCIUM, SERUM 8.1 mg/dL (8.5-10.1); CREATININE 0.7 mg/dL (0.6-1.3); POTASSIUM 3.3 mmol/L (3.5-5.1)
[2021-09-21] MEDS: BRIMONIDINE TARTRATE OPHT SOLN 5 ML BOTTLE EACHEYE SCH ×2 (08:43→17:27)
[2021-09-21] MEDS: DILTIAZEM HCL CD 180 MG PO SCH (08:44)
[2021-09-21] MEDS: hydrALAZINE HCL 25 MG TABLET PO SCH ×2 (08:45→17:27)
[2021-09-21] MEDS: APIXABAN 5 MG TABLET PO SCH ×2 (08:46→17:28)
[2021-09-21 08:48] LABS: THYROID STIMULATING HORMONE 1.207 uIU/mL (0.358-3.74)
--- NOTE | 2021-09-21 09:00 | NUR ---
RN NOTE RECEIVED A CALL FROM NURSE CLINICIANMARSHAL REPORTING TROPONIN LEVEL OF 177. MADE KARISSA RUSH NP AWARE WITH NO NEW ORDER AT THIS TIME.
[2021-09-21] MEDS ORDERED: POTASSIUM CHLORIDE 20 MEQ TAB.PRT.SR PO ONE (10:00)
[2021-09-21] MEDS: VANCOMYCIN 0.75 GM in IV D5W 250 ML IV SCH ×3 (10:00→21:29)
[2021-09-21] MEDS: METOPROLOL TARTRATE 50 MG TABLET PO SCH ×2 (10:30→21:00)
[2021-09-21] MEDS ORDERED: HYDR-4303 PO (10:40)
[2021-09-21] MEDS ORDERED: NA P133E RC (10:40)
[2021-09-21] MEDS ORDERED: BISA10SU11 RC (10:40)
[2021-09-21] MEDS ORDERED: ACET-868 PO (10:40)
[2021-09-21] MEDS ORDERED: ACET-2605 PO (10:40)
[2021-09-21] MEDS ORDERED: MAGN400O6 PO (10:40)
[2021-09-21] MEDS ORDERED: DOCU-141 PO (10:40)
--- NOTE | 2021-09-21 10:55 | NUR ---
RN NOTE FOLLOWED UP VANCOMYCIN 0.75GM IV SCHEDULED AT 1000 FROM PHARMACY. PER PHARMACY, [facility] IT'S ON ITS WAY TO THE UNIT.
[2021-09-21] MEDS: ASPIRIN 81 MG TAB.CHEW PO SCH (11:12)
--- NOTE | 2021-09-21 11:30 | NUR ---
RN NOTE FOLLOWED UP THE VANCOMYCIN 0.75GM IV SCHEDULED AT 1000 FROM PHARMACY AGAIN. PER PHARMACY, [facility] IT WILL BE IN THE UNIT SOON.
[2021-09-21 12:51] VITALS: BP 119/59
--- NOTE | 2021-09-21 13:12 | NUR ---
RN NOTE VANCOMYCIN 0.75GM IV SCHEDULED AT 1000 JUST RECEIVED FROM PHARMACY AND VANCO ADMINISTERED.
[2021-09-21] MEDS: MEROPENEM 500 MG in IV NS 0.9% 50 ML IV SCH ×2 (13:27→21:20)
[2021-09-21] MEDS: SOD FERRIC GLUC 125 MG in IV NS 0.9% 100 ML IV SCH (14:23)
[2021-09-21] MEDS: ATORVASTATIN 40 MG TABLET PO SCH (17:27)
--- NOTE | 2021-09-21 19:23 | NUR ---
FLIGHT DIRECTOR CLOSING NOTES PT IN BED AWAKE. A/O X3, ABLE TO MAKE NEEDS KNOWN. ON O2 AT 2L/MIN VIA NASAL CANNULA, TOLERATING WELL. NO SOB NOTED. NOT IN ANY SIGN OF RESPIRATORY DISTRESS. ON CARDIAC TELE MONITOR WITH CURRENT READING SINUS RHYTHM WITH PAC'S AND PVC'S, HR 84. NO C/O CARDIAC DISTRESS VOICED AT THIS TIME. IV ACCESS ON LAC G # 20 SALINE LOCK, INTACT AND PATENT AND L HAND G #20 WITH NS INFUSING AT 75ML/HR. ALL NEEDS ATTENDED. KEPT CLEAN AND COMFORTABLE. TURNED AND REPOSITIONED Q2HRS AND NEEDED. SAFETY MEASURES IN PLACE: BED IN LOWEST AND LOCKED POSITION, SIDE RAILS UP X2, AND CALL LIGHT WITHIN REACH. ENDORSED TO DIRECTOR OF FIELD COORDINATION NURSE FOR HERMELINDO.
--- NOTE | 2021-09-21 19:45 | NUR ---
TAXI DANCER OPENING NOTES RECEIVED PT IN BED SLEEPING BUT EASY TO AROUSED.A/O X3,ON O2 AT 2L/MIN VIA NASAL CANNULA, TOLERATING WELL. NO SOB/DISTRESS NOTED.ON CARDIAC TELE MONITOR WITH CURRENT READING SINUS RHYTHM WITH BBB, HR 78. IV ACCESS ON L HAND G #20 SALINE LOCK, INTACT AND PATENT AND LAC G # 20.SAFETY MEASURES IN PLACE: BED IN LOWEST AND LOCKED POSITION, SIDE RAILS UP X2, AND CALL LIGHT WITHIN REACH. WILL CONTINUE TO MONITOR.
[2021-09-21 20:46] VITALS: BP 100/59
[2021-09-22 00:35] VITALS: BP 104/52
[2021-09-22] MEDS: MEROPENEM 500 MG in IV NS 0.9% 50 ML IV SCH ×3 (04:20→21:29)
[2021-09-22 04:42] LABS: BILIRUBIN,URINE NEGATIVE (NEGATIVE); COLOR,URINE YELLOW (YELLOW); LEUKOCYTE ESTERASE ,URINE SMALL (NEGATIVE); NITRITE, URINE NEGATIVE (NEGATIVE); PROTEIN,URINE NEGATIVE (NEGATIVE); UGLUCOSE NEGATIVE (NEGATIVE); UROBILINOGEN,URINE 0.2 EU/dL (0.2)
[2021-09-22 04:47] VITALS: BP 104/59
[2021-09-22 05:27] LABS: BACTERIA,URINE Few /HPF (None Seen); SQUAMOUS EPITHELIAL CELL,UR Rare /HPF (None Seen); WBC,URINE TOO NUMEROUS TO COUN /HPF (0-3)
--- NOTE | 2021-09-22 06:46 | NUR ---
MIME ARTIST CLOSING NOTES PT IN BED SLEEPING BUT EASY TO AROUSED.A/O X3,ON O2 AT 2L/MIN VIA NASAL CANNULA, TOLERATING WELL. NO SOB/DISTRESS NOTED.ON CARDIAC TELE MONITOR WITH CURRENT READING SINUS RHYTHM HR 77,IV ACCESS L HAND G #20 PATENT AND INTACT.ALL NEEDS ATTENDED. KEPT CLEAN AND COMFORTABLE. TURNED AND REPOSITIONED Q2HRS AND NEEDED. SAFETY MEASURES IN PLACE: BED IN LOWEST AND LOCKED POSITION, SIDE RAILS UP X2, AND CALL LIGHT WITHIN REACH. ENDORSED TO VACUUM CLEANER REPAIRER NURSE FOR HERMELINDO.
[2021-09-22 08:00] VITALS: BP 114/62
--- NOTE | 2021-09-22 08:00 | NUR ---
RN OPENING NOTE PATIENT RECEIVED IN BED, AO X 3, ABLE TO RESPONDS ALL STIMULI. IN NO ACUTE DISTRESS NOTED. RESPIRATORY EVEN AND UNLABORED ON OXYGEN AT 2 Ls VIA NC. SKIN IS WARM TO TOUCH, KEEP CLEAN/DRY. KEPT ELEVATED HOB FOR ENSURE AIRWAY AND ASPIRATION PRECAUTION, ALSO LOWEST POSITION OF THE BED, S/R UP X 3, BED ALARM IS ON AT ALL THE TIMES. ALL SAFETY PRECAUTION APPLIED. CALL LIGHT WITHIN REACH, WILL CONTINUE TO MONITOR.
[2021-09-22 08:09] LABS: CALCIUM, SERUM 7.9 mg/dL (8.5-10.1); CREATININE 0.9 mg/dL (0.6-1.3); POTASSIUM 3.6 mmol/L (3.5-5.1)
[2021-09-22] MEDS: PANTOPRAZOLE 40 MG TABLET.DR PO SCH (08:42)
[2021-09-22] MEDS: BRIMONIDINE TARTRATE OPHT SOLN 5 ML BOTTLE EACHEYE SCH ×2 (08:42→16:58)
[2021-09-22] MEDS: ASPIRIN 81 MG TAB.CHEW PO SCH (08:42)
[2021-09-22] MEDS: METOPROLOL TARTRATE 50 MG TABLET PO SCH ×2 (08:44→21:30)
[2021-09-22] MEDS: APIXABAN 5 MG TABLET PO SCH ×2 (08:46→16:57)
[2021-09-22] MEDS: hydrALAZINE HCL 25 MG TABLET PO SCH ×2 (08:53→16:55)
[2021-09-22] MEDS: DILTIAZEM HCL CD 180 MG PO SCH (08:53)
--- NOTE | 2021-09-22 08:54 | NUR ---
PATIENT BP-102/58, P-89, WILL HOLD CARDIZEM AND HYDRALAZINE AT THIS TIME, GIVEN METOPROLOL.
[2021-09-22] MEDS ORDERED: HYDROGEL DRESSING 90 GM TUBE TP PRN (10:00)
[2021-09-22] MEDS ORDERED: NA PHOS,M-B/NA PHOS,DI-BA 1 EA ENEMA RC PRN (10:30)
[2021-09-22] MEDS ORDERED: DOCUSATE SODIUM 100 MG CAPSULE PO PRN (10:30)
[2021-09-22] MEDS ORDERED: BISACODYL SUPP (10 MG) 10 MG/SUPP.RECT SUPP.RECT RC PRN (10:30)
[2021-09-22] MEDS ORDERED: MAGNESIUM HYDROXIDE 30 ML UDC PO PRN (10:30)
[2021-09-22] MEDS: HYDROGEL DRESSING 90 GM TUBE TP SCH (11:20)
[2021-09-22] MEDS: VANCOMYCIN 0.75 GM in IV D5W 250 ML IV SCH ×2 (11:21→21:30)
[2021-09-22 12:00] VITALS: BP 120/60
[2021-09-22] MEDS: SOD FERRIC GLUC 125 MG in IV NS 0.9% 100 ML IV SCH (15:49)
[2021-09-22 16:00] VITALS: BP 141/71
--- NOTE | 2021-09-22 16:07 | NUR ---
PATIENT HAVE CT ANGIO ORDER BUT UNABLE TO FOLLOW DIRECTION AND CANCELLED. DR. SANDOVAL MADE AWARE.
[2021-09-22] MEDS: ATORVASTATIN 40 MG TABLET PO SCH (17:02)
[2021-09-22] MEDS: ENSURE ENLIVE 237 ML LIQUID (VANILLA) PO SCH (17:10)
--- NOTE | 2021-09-22 17:57 | NUR ---
RN CLOSING NOTE PATIENT IN BED RESTING. IN NO ACUTE DISTRESS NOTED. RESPIRATORY EVEN AND UNLABORED ON OXYGEN AT 2Ls VIA NC. SKIN IS WARM TO TOUCH, KEEP CLEAN/DRY. KEPT ELEVATED HOB FOR ENSURE AIRWAY AND ASPIRATION PRECAUTION, BED IN LOWEST POSITION AND LOCK. BED ALARM IS ON AT ALL THE TIMES. ALL SAFETY MEASURED IN PLACED. CALL LIGHT WITHIN REACH, WILL ENDORSED TO NEXT SHIFT.
--- NOTE | 2021-09-22 19:31 | NUR ---
SUPERVISOR EXTRUSION OPENING NOTES RECEIVED PT IN BED SLEEPING BUT EASY TO AROUSED.A/OX2 WITH CONFUSION.ON O2 AT 2L/MIN VIA NASAL CANNULA, TOLERATING WELL. NO SOB/DISTRESS NOTED.IV ACCESS ON RAC 18G.INTACT AND PATENT AND LAC G # 20.SAFETY MEASURES IN PLACE: BED IN LOWEST AND LOCKED POSITION, SIDE RAILS UP X2, AND CALL LIGHT WITHIN REACH. WILL CONTINUE TO MONITOR.
[2021-09-22 20:00] VITALS: BP 129/50
[2021-09-23] VITALS: BP 117/52
[2021-09-23 04:00] VITALS: BP 137/66
[2021-09-23] MEDS: MEROPENEM 500 MG in IV NS 0.9% 50 ML IV SCH ×2 (05:09→12:15)
--- NOTE | 2021-09-23 06:45 | NUR ---
ENGINEER FIRST ASSISTANT CLOSING NOTES PT IN BED SLEEPING BUT EASY TO AROUSED.A/O X2 WITH CONFUSION.ON O2 AT 2L/MIN VIA NASAL CANNULA, TOLERATING WELL. NO SOB/DISTRESS NOTED.ON CARDIAC TELE MONITOR WITH CURRENT READING SINUS RHYTHM HR 86,IV ACCESS RAC 18G,PATENT AND INTACT.ALL NEEDS ATTENDED. KEPT CLEAN AND COMFORTABLE. TURNED AND REPOSITIONED Q2HRS AND NEEDED. SAFETY MEASURES IN PLACE: BED IN LOWEST AND LOCKED POSITION, SIDE RAILS UP X2, AND CALL LIGHT WITHIN REACH. ENDORSED TO CERTIFIED MEDICAL ASSISTANT NURSE.
[2021-09-23 07:01] LABS: CALCIUM, SERUM 7.9 mg/dL (8.5-10.1); CREATININE 0.8 mg/dL (0.6-1.3); POTASSIUM 3.4 mmol/L (3.5-5.1)
[2021-09-23] MEDS: PANTOPRAZOLE 40 MG TABLET.DR PO SCH (07:30)
--- NOTE | 2021-09-23 07:30 | NUR ---
COUNTY DIRECTOR WELFARE OPENING NOTES RECEIVED PATIENT IN BED, ASLEEP EASILY AROUSED W/ STIMULI. A/O X1 WITH EPISODEES OF CONFUSION AND FORGETFULNESS, NEED RE-ORIENTATION FREQUENTLY. NO SOB OR CARDIAC DISTRESS NOTED, STABLE ON 2L OF O2 VIA NC IV ACCESS L WRIST #20G. INTACT AND PATENT. TELE MONITORING CURRENT READING SINUS RHYTHM 84 BPM. SKIN INTACT. SAFETY MEASURES MAINTAINED: BED IN LOWEST POSITION AND LOCKED, SIDE RAILS UP x2, CALL LIGHT WITHIN REACH, BED ALARM ON, HOB ELEVATED. KEPT RESTED AND COMFORTABLE.
[2021-09-23 08:00] VITALS: BP 120/70
[2021-09-23] MEDS: ENSURE ENLIVE 237 ML LIQUID (VANILLA) PO SCH ×2 (08:21→17:11)
[2021-09-23] MEDS: DILTIAZEM HCL CD 180 MG PO SCH (09:04)
[2021-09-23] MEDS: ASPIRIN 81 MG TAB.CHEW PO SCH (09:04)
[2021-09-23] MEDS: BRIMONIDINE TARTRATE OPHT SOLN 5 ML BOTTLE EACHEYE SCH ×2 (09:04→16:47)
[2021-09-23] MEDS: hydrALAZINE HCL 25 MG TABLET PO SCH ×2 (09:05→16:53)
[2021-09-23] MEDS: METOPROLOL TARTRATE 50 MG TABLET PO SCH ×2 (09:05→20:16)
[2021-09-23] MEDS: APIXABAN 5 MG TABLET PO SCH (09:09)
[2021-09-23] MEDS: HYDROGEL DRESSING 90 GM TUBE TP SCH (09:13)
[2021-09-23] MEDS ORDERED: POTASSIUM CHLORIDE 20 MEQ TAB.PRT.SR PO SCH ×2 (10:00)
--- NOTE | 2021-09-23 10:15 | NUR ---
RN NOTES: PATIENT UNABLE TO FOLLOW COMMAND, PER BOILER TENDERS SUPERVISOR WILL NOT ABLE TO PROCEED TO PROCEDURE.CT ANGIO W/ 3D ECHO.
[2021-09-23] MEDS: VANCOMYCIN 0.75 GM in IV D5W 250 ML IV SCH (10:31)
[2021-09-23] MEDS: NITROGLYCERIN 30 GM TUBE TP SCH ×2 (10:31→20:17)
[2021-09-23 12:00] VITALS: BP_SYST 112; BP_SYST 129; BP_DIAS 60; BP_DIAS 79
[2021-09-23] MEDS: SOD FERRIC GLUC 125 MG in IV NS 0.9% 100 ML IV SCH (14:34)
[2021-09-23 16:00] VITALS: BP_SYST 115; BP_DIAS 63; BP_DIAS 81
[2021-09-23] MEDS: AMPICILLIN 1 GM in IV NS 0.9% 50 ML IV SCH ×2 (16:46→23:30)
[2021-09-23] MEDS: ATORVASTATIN 40 MG TABLET PO SCH (17:12)
--- NOTE | 2021-09-23 18:44 | NUR ---
BASE BRANDER CLOSING NOTES PATIENT IN BED AWAKE A/O X1 WITH EPISODES OF CONFUSION AND FORGETFULNESS, NEED RE-ORIENTATION FREQUENTLY. NO SOB OR CARDIAC DISTRESS NOTED, STABLE ON 2L OF O2 VIA NC IV ACCESS L WRIST #20G. INTACT AND PATENT. TELE MONITORING CURRENT READING SINUS RHYTHM, WITH PVCS, PVCS AND SVTS 2 SECS 63 BPM. SKIN INTACT. SAFETY MEASURES MAINTAINED: BED IN LOWEST POSITION AND LOCKED, SIDE RAILS UP x2, CALL LIGHT WITHIN REACH, BED ALARM ON, HOB ELEVATED. ENDORSED TO CERAMICS TECHNICIAN NURSE FOR HERMELINDO.
--- NOTE | 2021-09-23 19:46 | NUR ---
FLEET MAINTENANCE MANAGER OPENING NOTES RECEIVED PT IN BED SLEEPING BUT EASY TO AROUSED.A/OX2 WITH CONFUSION.ON O2 AT 2L/MIN VIA NASAL CANNULA, TOLERATING WELL. NO SIGN SOB/DISTRESS NOTED.IV ACCESS ON RAC 18G.INTACT AND PATENT AND LAC G # 20.SAFETY MEASURES IN PLACE: BED IN LOWEST AND LOCKED POSITION, SIDE RAILS UP X2, AND CALL LIGHT WITHIN REACH. WILL CONTINUE TO MONITOR.
[2021-09-23 20:00] VITALS: BP 107/56
[2021-09-24] VITALS (7 sets, daily range): BP systolic 112–137; BP diastolic 51–79
[2021-09-24] MEDS: AMPICILLIN 1 GM in IV NS 0.9% 50 ML IV SCH ×4 (05:02→23:02)
--- NOTE | 2021-09-24 06:35 | NUR ---
BELT CLEANER OPENING NOTES. PT IN BED SLEEPING BUT EASY TO AROUSED.A/OX2 WITH CONFUSION.ON O2 AT 2L/MIN VIA NASAL CANNULA O2SAT 98. TOLERATING WELL. NO SIGN SOB/DISTRESS NOTED.IV ACCESS ON RAC 18G.INTACT AND PATENT AND LAC G # 20.DUE MEDS GIVEN ORDERED.ALL NEEDS ATTENDED.DRESSING CHANGE.SAFETY MEASURES IN PLACE: BED IN LOWEST AND LOCKED POSITION, SIDE RAILS UP X2, AND CALL LIGHT WITHIN REACH. WILL ENDORSED TO NEXT NURSE.
[2021-09-24 06:47] LABS: BASOPHILS % (AUTO) 0.3 % (0.0-2.0); EOSINOPHILS % (AUTO) 1.3 % (0.0-6.0); HEMATOCRIT 26 % (39-51); HEMOGLOBIN 8.5 g/dL (13.5-17.5); LYMPHOCYTES # (AUTO) 1.2 K/uL (0.8-4.8); LYMPHOCYTES % (AUTO) 13.8 % (20.0-44.0); MEAN CORPUSCULAR HGB CONC 33 g/dl (31.0-36.0); MEAN CORPUSCULAR VOLUME 88 fL (80-96); MONOCYTES # (AUTO) 0.6 K/uL (0.1-1.30); NEUTROPHILS # (AUTO) 6.7 K/uL (1.8-8.9); NEUTROPHILS % (AUTO) 77.6 % (43.0-81.0); PLATELET COUNT (AUTO) 206 K/uL (150-450); RED BLOOD CELL COUNT(AUTO) 2.93 MIL/uL (4.5-6.0); WHITE BLOOD COUNT (AUTO) 8.6 K/uL (4.3-11.0)
[2021-09-24] MEDS: PANTOPRAZOLE 40 MG TABLET.DR PO SCH (07:19)
[2021-09-24 07:23] LABS: ALBUMIN 1.6 g/dL (3.4-5.0); BILIRUBIN,TOTAL 0.4 mg/dL (0.2-1.0); CALCIUM, SERUM 7.9 mg/dL (8.5-10.1); CREATININE 0.8 mg/dL (0.6-1.3); PHOSPHORUS 2.8 mg/dL (2.5-4.9); POTASSIUM 3.8 mmol/L (3.5-5.1); TOTAL PROTEIN, SERUM 6.1 g/dL (6.4-8.2)
--- NOTE | 2021-09-24 07:30 | NUR ---
RESPIRATORY CARE ASSISTANT OPENING NOTES RECEIVED PATIENT IN BED, ASLEEP EASILY AROUSED W/ STIMULI. A/O X1 WITH EPISODEES OF CONFUSION AND FORGETFULNESS, NEED RE-ORIENTATION FREQUENTLY. NO SOB OR CARDIAC DISTRESS NOTED, STABLE ON 2L OF O2 VIA NC IV ACCESS L WRIST #20G. INTACT AND PATENT. TELE MONITORING CURRENT READING SINUS RHYTHM 69 BPM. SAFETY MEASURES MAINTAINED: BED IN LOWEST POSITION AND LOCKED, SIDE RAILS UP x2, CALL LIGHT WITHIN REACH, BED ALARM ON, HOB ELEVATED. KEPT RESTED AND COMFORTABLE.
[2021-09-24] MEDS: ENSURE ENLIVE 237 ML LIQUID (VANILLA) PO SCH ×2 (08:11→17:03)
[2021-09-24] MEDS: ASPIRIN 81 MG TAB.CHEW PO SCH (08:44)
[2021-09-24] MEDS: BRIMONIDINE TARTRATE OPHT SOLN 5 ML BOTTLE EACHEYE SCH ×2 (08:44→17:03)
[2021-09-24] MEDS: DILTIAZEM HCL CD 180 MG PO SCH (08:45)
[2021-09-24] MEDS: NITROGLYCERIN 30 GM TUBE TP SCH ×2 (08:46→20:28)
[2021-09-24] MEDS: HYDROGEL DRESSING 90 GM TUBE TP SCH (08:46)
[2021-09-24] MEDS: METOPROLOL TARTRATE 50 MG TABLET PO SCH ×2 (08:46→20:28)
[2021-09-24] MEDS: hydrALAZINE HCL 25 MG TABLET PO SCH ×2 (08:49→17:03)
--- NOTE | 2021-09-24 08:50 | NUR ---
RN NOTES: HYDRALAZINE NOT GIVEN. PATIENT HAD 2 BP MEDS, CURRENT BP 127/57, HR 76.
[2021-09-24] MEDS: SOD FERRIC GLUC 125 MG in IV NS 0.9% 100 ML IV SCH (14:06)
[2021-09-24] MEDS: ATORVASTATIN 40 MG TABLET PO SCH (17:07)
--- NOTE | 2021-09-24 18:50 | NUR ---
MS RN CLOSING NOTES PATIENT IN BED AWAKE A/O X1 WITH EPISODES OF CONFUSION AND FORGETFULNESS, NEED RE-ORIENTATION FREQUENTLY. NO SOB OR CARDIAC DISTRESS NOTED, STABLE ON 2L OF O2 VIA NC IV ACCESS L WRIST #20G. INTACT AND PATENT. SAFETY MEASURES MAINTAINED: BED IN LOWEST POSITION AND LOCKED, SIDE RAILS UP x2, CALL LIGHT WITHIN REACH, BED ALARM ON, HOB ELEVATED. ENDORSED TO ICE BAG ASSEMBLER NURSE FOR HERMELINDO.
--- NOTE | 2021-09-24 19:58 | NUR ---
RN OPENING NOTES RECEIVED PT IN BED SLEEPING BUT EASY TO AROUSED.A/OX2 WITH CONFUSION.ON O2 AT 2L/MIN VIA NASAL CANNULA, TOLERATING WELL. NO SIGN SOB/DISTRESS NOTED.IV ACCESS ON RAC 18G.INTACT AND PATENT AND LhG # 20.SAFETY MEASURES IN PLACE: BED IN LOWEST AND LOCKED POSITION, SIDE RAILS UP X2, AND CALL LIGHT WITHIN REACH. WILL CONTINUE TO MONITOR.
[2021-09-25] MEDS: AMPICILLIN 1 GM in IV NS 0.9% 50 ML IV SCH ×3 (05:07→18:21)
--- NOTE | 2021-09-25 06:22 | NUR ---
RN OPENING NOTES. PT IN BED SLEEPING BUT EASY TO AROUSED.A/OX2 WITH CONFUSION.ON O2 AT 2L/MIN VIA NASAL CANNULA O2SAT 97%. TOLERATING WELL. NO SIGN SOB/DISTRESS NOTED.IV ACCESS ON RAC 18G.INTACT AND PATENT AND LHAND G # 20.DUE MEDS GIVEN ORDERED.ALL NEEDS ATTENDED.DRESSING CHANGE.SAFETY MEASURES IN PLACE: BED IN LOWEST AND LOCKED POSITION, SIDE RAILS UP X2, AND CALL LIGHT WITHIN REACH. WILL ENDORSED TO NEXT NURSE.
[2021-09-25 06:29] LABS: BASOPHILS % (AUTO) 0.3 % (0.0-2.0); EOSINOPHILS % (AUTO) 1.6 % (0.0-6.0); HEMATOCRIT 26 % (39-51); HEMOGLOBIN 8.9 g/dL (13.5-17.5); LYMPHOCYTES # (AUTO) 1.3 K/uL (0.8-4.8); LYMPHOCYTES % (AUTO) 16.4 % (20.0-44.0); MEAN CORPUSCULAR HGB CONC 35 g/dl (31.0-36.0); MEAN CORPUSCULAR VOLUME 87 fL (80-96); MONOCYTES # (AUTO) 0.7 K/uL (0.1-1.30); MONOCYTES % (AUTO) 8.7 % (2.0-12.0); NEUTROPHILS # (AUTO) 5.9 K/uL (1.8-8.9); PLATELET COUNT (AUTO) 230 K/uL (150-450); RED BLOOD CELL COUNT(AUTO) 2.94 MIL/uL (4.5-6.0); WHITE BLOOD COUNT (AUTO) 8.1 K/uL (4.3-11.0)
[2021-09-25 07:03] LABS: ALBUMIN 1.7 g/dL (3.4-5.0); BILIRUBIN,TOTAL 0.4 mg/dL (0.2-1.0); CREATININE 0.9 mg/dL (0.6-1.3); MAGNESIUM 2.1 mg/dL (1.8-2.4); PHOSPHORUS 2.9 mg/dL (2.5-4.9); POTASSIUM 3.6 mmol/L (3.5-5.1); TOTAL PROTEIN, SERUM 6.5 g/dL (6.4-8.2)
[2021-09-25] MEDS: PANTOPRAZOLE 40 MG TABLET.DR PO SCH (08:43)
[2021-09-25] MEDS: ASPIRIN 81 MG TAB.CHEW PO SCH (08:51)
[2021-09-25] MEDS: DILTIAZEM HCL CD 180 MG PO SCH (08:52)
[2021-09-25] MEDS: hydrALAZINE HCL 25 MG TABLET PO SCH ×2 (08:52→17:21)
[2021-09-25] MEDS: NITROGLYCERIN 30 GM TUBE TP SCH ×2 (08:53→21:34)
[2021-09-25] MEDS: ENSURE ENLIVE 237 ML LIQUID (VANILLA) PO SCH ×2 (08:56→17:20)
[2021-09-25] MEDS: HYDROGEL DRESSING 90 GM TUBE TP SCH (08:58)
[2021-09-25] MEDS: METOPROLOL TARTRATE 50 MG TABLET PO SCH ×2 (09:03→21:34)
[2021-09-25] MEDS: BRIMONIDINE TARTRATE OPHT SOLN 5 ML BOTTLE EACHEYE SCH ×2 (09:22→17:20)
--- NOTE | 2021-09-25 09:44 | NUR ---
CAST SHELL GRINDER OPENING NOTES RECEIVED PATIENT IN BED, ASLEEP EASILY AROUSED W/ STIMULI. A/O X1 WITH EPISODEES OF CONFUSION AND FORGETFULNESS, NEED RE-ORIENTATION FREQUENTLY. NO SOB OR CARDIAC DISTRESS NOTED, STABLE ON 2L OF O2 VIA NC IV ACCESS L WRIST #20G. INTACT AND PATENT. SAFETY MEASURES MAINTAINED: BED IN LOWEST POSITION AND LOCKED, SIDE RAILS UP x2, CALL LIGHT WITHIN REACH, BED ALARM ON, HOB ELEVATED. KEPT RESTED AND COMFORTABLE. Addendum: 09/25/21 at 0947 by DEXTER GRISSOM RN RN OPENING NOTES
--- NOTE | 2021-09-25 11:30 | NUR ---
PICC line insertion , Stat xray ordered.
--- NOTE | 2021-09-25 13:00 | NUR ---
MD Seen patient with no new orders
[2021-09-25] MEDS: SOD FERRIC GLUC 125 MG in IV NS 0.9% 100 ML IV SCH (14:28)
[2021-09-25] MEDS: ATORVASTATIN 40 MG TABLET PO SCH (17:19)
--- NOTE | 2021-09-25 19:39 | NUR ---
RN OPENING NOTE PATIENT ASLEEP IN BED. A/OX2. NO S/S OF DISTRESS, BREATHING W/O DIFFICULTY ON 2L NC. SARAH PICC INTACT AND PATENT. SAFETY MEASURES IN PLACE: BED LOCKED AND AT LOWEST POSITION, RAILS UP X2, CALL CARVAJAL WITHIN REACH. WILL CONTINUE TO MONITOR PATIENT.
--- NOTE | 2021-09-25 20:24 | NUR ---
RN NOTE PATIENT TRANSFERRED FROM THIS RN TO RN YINKA (REPORT GIVEN); SAME FLOOR, 3W. TRANSFER PER CHARGE NURSETRINY. PATIENT STABLE.
--- NOTE | 2021-09-25 21:10 | NUR ---
MS/TELE/RN AT 2029. ASSUMED CARE FOR CONTINUITY OF CARE, PATIENT WAS IN BED AWAKE, ORIENTED, NO C/O PAIN, NO DISTRESS NOTED, CALL LIGHT IN REACH, NEEDS ATTENDED, WILL MONITOR.
[2021-09-26] MEDS: AMPICILLIN 1 GM in IV NS 0.9% 50 ML IV SCH ×4 (00:32→17:35)
--- NOTE | 2021-09-26 06:23 | NUR ---
MS/TELE/RN PATIENT IS STILL SLEEPING AT THIS TIME, EASILY AROUSABLE, NO SIGNS OF DISTRESS NOTED, CALL LIGHT IN REACH, ALL NEEDS ATTENDED, WILL CONTINUE TO MONITOR.
[2021-09-26 06:30] LABS: BASOPHILS # (AUTO) 0.1 K/uL (0.0-0.2); BASOPHILS % (AUTO) 0.7 % (0.0-2.0); EOSINOPHILS % (AUTO) 1.8 % (0.0-6.0); HEMATOCRIT 25 % (39-51); HEMOGLOBIN 8.2 g/dL (13.5-17.5); LYMPHOCYTES # (AUTO) 1.5 K/uL (0.8-4.8); LYMPHOCYTES % (AUTO) 17.1 % (20.0-44.0); MEAN CORPUSCULAR HGB CONC 33 g/dl (31.0-36.0); MEAN CORPUSCULAR VOLUME 88 fL (80-96); MONOCYTES # (AUTO) 0.7 K/uL (0.1-1.30); MONOCYTES % (AUTO) 8.5 % (2.0-12.0); NEUTROPHILS # (AUTO) 6.3 K/uL (1.8-8.9); NEUTROPHILS % (AUTO) 71.9 % (43.0-81.0); PLATELET COUNT (AUTO) 247 K/uL (150-450); RED BLOOD CELL COUNT(AUTO) 2.81 MIL/uL (4.5-6.0); WHITE BLOOD COUNT (AUTO) 8.7 K/uL (4.3-11.0)
[2021-09-26 07:18] LABS: ALBUMIN 1.8 g/dL (3.4-5.0); BILIRUBIN,TOTAL 0.4 mg/dL (0.2-1.0); CALCIUM, SERUM 8.3 mg/dL (8.5-10.1); CREATININE 0.8 mg/dL (0.6-1.3); MAGNESIUM 2.1 mg/dL (1.8-2.4); PHOSPHORUS 3.2 mg/dL (2.5-4.9); POTASSIUM 3.6 mmol/L (3.5-5.1); TOTAL PROTEIN, SERUM 6.5 g/dL (6.4-8.2)
--- NOTE | 2021-09-26 07:20 | NUR ---
ms rn received on bed, sleeping, not in any form of distress, respirations even and unlabored,no sob noted, lungs are diminished, abdomne soft,positive bowel sounds, denies pain at this time, repositioned for comfort,all needs attended.
[2021-09-26 08:00] VITALS: BP 124/60
[2021-09-26] MEDS: ENSURE ENLIVE 237 ML LIQUID (VANILLA) PO SCH ×2 (08:00→17:35)
--- NOTE | 2021-09-26 08:20 | NUR ---
ms merino breakfast served,due meds given,tolerated well.
[2021-09-26] MEDS: ASPIRIN 81 MG TAB.CHEW PO SCH (09:21)
[2021-09-26] MEDS: BRIMONIDINE TARTRATE OPHT SOLN 5 ML BOTTLE EACHEYE SCH ×2 (09:21→17:44)
[2021-09-26] MEDS: PANTOPRAZOLE 40 MG TABLET.DR PO SCH (09:21)
[2021-09-26] MEDS: METOPROLOL TARTRATE 50 MG TABLET PO SCH ×2 (09:22→20:48)
[2021-09-26] MEDS: DILTIAZEM HCL CD 180 MG PO SCH (09:22)
[2021-09-26] MEDS: hydrALAZINE HCL 25 MG TABLET PO SCH ×2 (10:01→17:34)
[2021-09-26] MEDS: HYDROGEL DRESSING 90 GM TUBE TP SCH (10:08)
[2021-09-26] MEDS: NITROGLYCERIN 30 GM TUBE TP SCH ×2 (10:09→20:48)
--- NOTE | 2021-09-26 14:00 | NUR ---
ms rn mri spine w/ contrast done awaiting for result.
[2021-09-26 16:00] VITALS: BP 124/57
[2021-09-26] MEDS: ATORVASTATIN 40 MG TABLET PO SCH (17:34)
--- NOTE | 2021-09-26 19:04 | NUR ---
ms rn on bed, no distress noted.
--- NOTE | 2021-09-26 19:56 | NUR ---
RN OPENING NOTES RECEIVED PT IN BED, ASLEEP, AWAKENS TO TACTILE STIMULI. AOx1. ON RA AND TOLERATING WELL. NO SOB NOTED. NO S/SX OF RESPIRATORY DISTRESS NOTED. IV ACCESS IN SARAH PICC LINE. IV IS INTACT, PATENT, AND FLUSHING WELL. SAFETY PRECAUTIONS IN PLACE: BED IN LOWEST, LOCKED POSITION, SIDERAILS UPx2, AND BRAKES ON. TABLE AND CALL LIGHT WITHIN REACH. WILL CONTINUE TO MONITOR.
[2021-09-26 20:00] VITALS: BP 130/67
[2021-09-27] MEDS ORDERED: ALBUTEROL FS 2.5 MG/0.5 ML VIAL.NEB NEB PRN
[2021-09-27] MEDS ORDERED: IPRATROPIUM NEB FS 0.5 MG/2.5 ML AMPUL.NEB NEB PRN
[2021-09-27] MEDS: AMPICILLIN 1 GM in IV NS 0.9% 50 ML IV SCH ×6 (05:51→23:16)
[2021-09-27 06:42] LABS: BASOPHILS % (AUTO) 0.5 % (0.0-2.0); EOSINOPHILS % (AUTO) 1.6 % (0.0-6.0); HEMATOCRIT 28 % (39-51); HEMOGLOBIN 9.3 g/dL (13.5-17.5); LYMPHOCYTES # (AUTO) 1.5 K/uL (0.8-4.8); LYMPHOCYTES % (AUTO) 18.2 % (20.0-44.0); MEAN CORPUSCULAR HGB CONC 34 g/dl (31.0-36.0); MEAN CORPUSCULAR VOLUME 88 fL (80-96); MONOCYTES # (AUTO) 0.6 K/uL (0.1-1.30); MONOCYTES % (AUTO) 7.4 % (2.0-12.0); NEUTROPHILS # (AUTO) 5.9 K/uL (1.8-8.9); NEUTROPHILS % (AUTO) 72.3 % (43.0-81.0); PLATELET COUNT (AUTO) 266 K/uL (150-450); RED BLOOD CELL COUNT(AUTO) 3.13 MIL/uL (4.5-6.0); WHITE BLOOD COUNT (AUTO) 8.2 K/uL (4.3-11.0)
[2021-09-27 06:47] LABS: ALANINE AMINOTRANSFERASE 56 U/L (12-78); ALBUMIN 1.9 g/dL (3.4-5.0); ALKALINE PHOSPHATASE 96 U/L (46-116); ASPARTATE AMINOTRANSFERASE 37 U/L (15-37); BILIRUBIN,TOTAL 0.5 mg/dL (0.2-1.0); CALCIUM, SERUM 8.2 mg/dL (8.5-10.1); CARBON DIOXIDE 26 mmol/L (21-32); CHLORIDE 102 mmol/L (98-107); CREATININE 0.9 mg/dL (0.6-1.3); GLUCOSE 88 mg/dL (74-106); MAGNESIUM 2.3 mg/dL (1.8-2.4); PHOSPHORUS 3.2 mg/dL (2.5-4.9); POTASSIUM 4.1 mmol/L (3.5-5.1); SODIUM SERUM 135 mmol/L (136-145); UREA NITROGEN, BLOOD 15 mg/dL (7-18)
--- NOTE | 2021-09-27 06:52 | NUR ---
RN CLOSING NOTES PT IN BED, ASLEEP, AWAKENS TO TACTILE STIMULI. AOx2-3. ON RA AND TOLERATING WELL. NO SOB NOTED. NO S/SX OF RESPIRATORY DISTRESS NOTED. IV ACCESS IN SARAH PICC LINE. IV IS INTACT, PATENT, AND FLUSHING WELL. ALL ORDERS CARRIED OUT. ALL NEEDS MET. PT KEPT CLEAN AND DRY. SAFETY PRECAUTIONS IN PLACE: BED IN LOWEST, LOCKED POSITION, SIDERAILS UPx2, AND BRAKES ON. TABLE AND CALL LIGHT WITHIN REACH. WILL ENDORSE TO ONCOMING SHIFT FOR HERMELINDO.
--- NOTE | 2021-09-27 07:58 | NUR ---
RN OPENING NOTE PATIENT AWAKE IN BED RESTING. A/O X2-3. NO S/S OF PAIN NOTED AT THIS TIME. ON ROOM AIR, NO DISTRESS OR SHORTNESS OF BREATH NOTED. IV ACCESS SARAH PICC-LINE, RAC #20G, INTACT, PATENT AND FLUSHING WELL. FALL AND SAFETY MEASURES IN PLACE, BED ALARM ON, BED IN LOW AND LOCK POSITION, CALL LIGHT AND TABLE WITHIN EASY REACH, SIDE RAILS UP X2. WILL CONTINUE TO MONITOR.
[2021-09-27 08:00] VITALS: BP 133/66
[2021-09-27] MEDS: PANTOPRAZOLE 40 MG TABLET.DR PO SCH (08:52)
[2021-09-27] MEDS: ASPIRIN 81 MG TAB.CHEW PO SCH (08:52)
[2021-09-27] MEDS: METOPROLOL TARTRATE 50 MG TABLET PO SCH ×2 (08:53→20:09)
[2021-09-27] MEDS: DILTIAZEM HCL CD 180 MG PO SCH (08:54)
[2021-09-27] MEDS: hydrALAZINE HCL 25 MG TABLET PO SCH ×2 (08:54→18:37)
[2021-09-27] MEDS: ENSURE ENLIVE 237 ML LIQUID (VANILLA) PO SCH ×2 (08:59→18:39)
[2021-09-27] MEDS: BRIMONIDINE TARTRATE OPHT SOLN 5 ML BOTTLE EACHEYE SCH ×2 (10:10→18:37)
[2021-09-27] MEDS: NITROGLYCERIN 30 GM TUBE TP SCH ×3 (10:12→20:09)
[2021-09-27] MEDS: HYDROGEL DRESSING 90 GM TUBE TP SCH (10:15)
[2021-09-27] MEDS ORDERED: GADOTERATE MEGLUMINE 10 MMOL/20 ML VIAL IV ONE (15:16)
--- NOTE | 2021-09-27 15:21 | NUR ---
PATIENT IS AWAKE AND ORIENTED ON 2 L NC. PATIENT IS STABLE NO DISTRESS NOTED. Addendum: 09/27/21 at 1522 by JOHNNA CANNON RT Amended: Links added.
[2021-09-27 16:09] VITALS: BP 124/53
[2021-09-27] MEDS: ATORVASTATIN 40 MG TABLET PO SCH (18:36)
--- NOTE | 2021-09-27 18:36 | NUR ---
RN CLOSING NOTE PATIENT AWAKE IN BED RESTING. A/O X2-3. NO S/S OF PAIN NOTED AT THIS TIME. ON ROOM AIR, NO DISTRESS OR SHORTNESS OF BREATH NOTED. IV ACCESS SARAH PICC-LINE, RAC #20G, INTACT, PATENT AND FLUSHING WELL. SCHEDULE MEDICATIONS ADMINISTERED. PATIENT WAS TURNED AND REPOSITIONED PER PROTOCOL. FALL AND SAFETY MEASURES IN PLACE, BED ALARM ON, BED IN LOW AND LOCK POSITION, CALL LIGHT AND TABLE WITHIN EASY REACH, SIDE RAILS UP X2. WILL ENDORSE TO SHIPWRIGHT SUPERVISOR. Addendum: 09/27/21 at 1844 by JALYN FRASER RN ON 1L OXYGEN VIA NC
--- NOTE | 2021-09-27 19:46 | NUR ---
MS RN OPENING NOTE RECEIVED PATIENT AWAKE IN BED. A/O X2-3. PT ON O2 @ 1 LPM VIA NC, TOLERATING WELL. NO SOB OR S/S OF RESPIRATORY DISTRESS. BREATHING EVEN AND UNLABORED. IV ACCESS SARAH PICC-LINE, RAC #20G, INTACT AND PATENT. SAFETY PRECAUTIONS IN PLACE. BED IN LOWEST LOCKED POSITION, HOB ELEVATED, SIDE RAILS UP X3, BED ALARM ON, AND CALL LIGHT AND TABLE WITHIN REACH. ALL NEEDS MET AT THIS TIME.
[2021-09-28] MEDS: AMPICILLIN 1 GM in IV NS 0.9% 50 ML IV SCH ×3 (05:42→17:29)
--- NOTE | 2021-09-28 07:08 | NUR ---
MS RN CLOSING NOTE PATIENT AWAKE IN BED. A/O X2-3. PT ON O2 @ 1 LPM VIA NC, TOLERATING WELL. NO SOB OR S/S OF RESPIRATORY DISTRESS. BREATHING EVEN AND UNLABORED. IV ACCESS SARAH PICC-LINE, RAC #20G, INTACT AND PATENT. ALL DUE MEDS GIVEN ORDERED. SAFETY PRECAUTIONS IN PLACE AT ALL TIMES. BED IN LOWEST LOCKED POSITION, HOB ELEVATED, SIDE RAILS UP X3, BED ALARM ON, AND CALL LIGHT AND TABLE WITHIN REACH. ALL NEEDS MET AT THIS TIME AND WILL ENDORSE TO ONCOMING NURSE FOR HERMELINDO.
--- NOTE | 2021-09-28 07:30 | NUR ---
RN OPENING NOTES RECEIVED PT IN BED, ASLEEP BUT EASILY AWAKEN, AOx2. ON RA AND TOLERATING WELL. NO SOB OR ACUTE DISTRESS NOTED AT THIS TIME. IV ACCESS IN SARAH PICC LINE. IV IS INTACT, PATENT, AND FLUSHING WELL. SAFETY PRECAUTIONS IN PLACE: BED IN LOWEST, LOCKED POSITION, SIDERAILS UPx2, AND BRAKES ON. TABLE AND CALL LIGHT WITHIN REACH. WILL CONTINUE TO MONITOR.
[2021-09-28] MEDS: ENSURE ENLIVE 237 ML LIQUID (VANILLA) PO SCH ×2 (08:24→17:35)
[2021-09-28] MEDS: DILTIAZEM HCL CD 180 MG PO SCH (09:57)
[2021-09-28] MEDS: METOPROLOL TARTRATE 50 MG TABLET PO SCH ×2 (09:57→21:08)
[2021-09-28] MEDS: ASPIRIN 81 MG TAB.CHEW PO SCH (09:57)
[2021-09-28] MEDS: hydrALAZINE HCL 25 MG TABLET PO SCH ×2 (09:57→17:27)
[2021-09-28] MEDS: PANTOPRAZOLE 40 MG TABLET.DR PO SCH (10:02)
[2021-09-28] MEDS: NITROGLYCERIN 30 GM TUBE TP SCH ×2 (10:02→21:09)
[2021-09-28] MEDS: BRIMONIDINE TARTRATE OPHT SOLN 5 ML BOTTLE EACHEYE SCH ×2 (10:03→19:25)
[2021-09-28] MEDS: HYDROGEL DRESSING 90 GM TUBE TP SCH (10:09)
[2021-09-28] MEDS: ATORVASTATIN 40 MG TABLET PO SCH (17:27)
--- NOTE | 2021-09-28 19:52 | NUR ---
MS RN CLOSING NOTE PATIENT AWAKE IN BED. A/O X2-3. PT ON O2 @ 1 LPM VIA NC, TOLERATING WELL. NO SOB OR S/S OF RESPIRATORY DISTRESS. BREATHING EVEN AND UNLABORED. IV ACCESS SARAH PICC-LINE, RAC #20G, INTACT AND PATENT. ALL DUE MEDS GIVEN ORDERED. SAFETY PRECAUTIONS IN PLACE AT ALL TIMES. BED IN LOWEST LOCKED POSITION, HOB ELEVATED, SIDE RAILS UP X3, BED ALARM ON, AND CALL LIGHT AND TABLE WITHIN REACH, ENDORSED TO PM SHIFT.
[2021-09-28 20:00] VITALS: BP 113/59
[2021-09-28 20:43] VITALS: BP 113/59
--- NOTE | 2021-09-28 20:57 | NUR ---
MS RN OPENING NOTE PT RECEIVED IN BED, ASLEEP BUT EASILY AROUSABLE, A&O X2, CONFUSED, FORGETFUL. PT ON 1L NC WITH O2SAT OF 94%; PT NOTED TO HAVE EXPIRATORY WHEEZING, NO OTHER S/S OF RESP DISTRESS, NO SOB OR COUGH, NON-LABORED AND EQUAL BREATHING. VSS, WILL CONTINUE TO MONITOR NEEDED. IV ACCESS RAC 20G AND SARAH PICC LINE INTACT AND PATENT, FLUSHES EASILY WITH NO RESISTANCE; CURRENTLY HAS NO MEDS/FLUIDS RUNNING THROUGH IT.BED IN LOWEST POSITION, CALL LIGHT WITHIN REACH, SIDE RAILS UP X3. WILL CONTINUE TO MONITOR THROUGHOUT THE NIGHT.
[2021-09-29] MEDS: AMPICILLIN 1 GM in IV NS 0.9% 50 ML IV SCH ×3 (00:23→12:46)
--- NOTE | 2021-09-29 06:09 | NUR ---
MS RN CLOSING NOTE PT REMAINS IN BED, A&O X1-2 WITH PERIODS OF CONFUSION AND FORGETFULNESS, CALM, COOPERATIVE; SLEPT WELL THROUGHOUT THE NIGHT. PT REMAINS ON 1L NC WITH O2SAT OF 94%. PT NOTED TO HAVE EXPIRATORY WHEEZING WITH USE OF ACCESSORY MUSCLES TO BREATHE; NO OTHER SIGNS OF RESP DISTRESS, NO SOB OR COUGH, NON-LABORED AND EQUAL BREATHING. VSS THROUGHOUT THE NIGHT WITH NO SIGNIFICANT CHANGES. SARAH PICC LINE AND RAC 20G INTACT AND PATENT, ADMINISTERED PT'S AMPICILLIN AT 0000 AND 0600. PICTURES TAKEN AND PLACED IN CHART. ALL DUE MEDS ADMINISTERED THROUGHOUT THE SHIFT. BED IN LOWEST POSITION, CALL LIGHT WITHIN REACH, SIDE RAILS UP X3. WILL ENDORSE TO DAYSHIFT NURSE TO CONTINUE CARE.
--- NOTE | 2021-09-29 07:05 | NUR ---
MS RN OPENING NOTE PT RECEIVED IN BED, ASLEEP BUT EASILY AROUSABLE, A&O X2, CONFUSED, FORGETFUL. PT ON 1L NC WITH O2SAT OF 96%; NO SOB OR ACUTE DISTRESS NOTED. NON-LABORED AND EQUAL BREATHING. IV ACCESS RAC 20G AND SARAH PICC LINE INTACT AND PATENT, FLUSHES EASILY WITH NO RESISTANCE. BED IN LOWEST POSITION, CALL LIGHT WITHIN REACH, SIDE RAILS UP X3. WILL CONTINUE TO MONITOR.
[2021-09-29] MEDS: PANTOPRAZOLE 40 MG TABLET.DR PO SCH (08:17)
[2021-09-29] MEDS: hydrALAZINE HCL 25 MG TABLET PO SCH (08:17)
[2021-09-29] MEDS: METOPROLOL TARTRATE 50 MG TABLET PO SCH (08:17)
[2021-09-29] MEDS: DILTIAZEM HCL CD 180 MG PO SCH (08:17)
[2021-09-29 08:18] VITALS: BP 114/78
[2021-09-29] MEDS: BRIMONIDINE TARTRATE OPHT SOLN 5 ML BOTTLE EACHEYE SCH (08:18)
[2021-09-29] MEDS: ASPIRIN 81 MG TAB.CHEW PO SCH (08:18)
[2021-09-29] MEDS: NITROGLYCERIN 30 GM TUBE TP SCH ×2 (08:18→09:58)
[2021-09-29] MEDS: ENSURE ENLIVE 237 ML LIQUID (VANILLA) PO SCH (08:33)
[2021-09-29] MEDS: HYDROGEL DRESSING 90 GM TUBE TP SCH (10:32)
--- NOTE | 2021-09-29 14:30 | NUR ---
MS FIELD SERVICE COORDINATOR NOTES: DC ODER CARRIED PER MD CARRIED OUT. PER CM, PT WILL BE DISCHARGED TO [facility]. CALLED CECILIA GÓMEZ TO ENDORSE. PT STABLE AND VITALS WNL. BELONGINGS LIST, DISCHARGE INSTRUCTIONS AND MED RECON SIGNED BY 2 RNS AT BEDSIDE, PT VERBALIZED UNDERSTANDING TO INSTRUCTIONS, HOWEVER WRITING NOT LEGIBLE. IV ACCESS AND ID BAND REMOVED, PICC LINE LEFT IN PLACE FOR CONTINUED IV ABX ADMINISTRATION PER MD. EMT TRANSPORT ARRIVED @ 1420, RUN# [id number]; UNIT # [id number], COMPANY IS [email or web address].
== END 2021-09-29 14:35 | DRG 871 ==
LOC: ER 20:23 → TRANSITION 09-21 00:33 → TELE 09-21 02:49 → MED 09-24 11:39
PROVIDERS: ADMIT Nurse Practitioner Family
PROC: 02HV33Z Insertion of Infusion Device into Superior Vena Cava, Percutaneous Approach (ICD-10-PCS; principal; 2021-09-25)
PROC: B548ZZA Ultrasonography of Superior Vena Cava, Guidance (ICD-10-PCS; 2021-09-25)
DX: A41.81 Sepsis due to Enterococcus (principal); I21.4 Non-ST elevation (NSTEMI) myocardial infarction; E87.1 Hypo-osmolality and hyponatremia; E44.0 Moderate protein-calorie malnutrition; M46.26 Osteomyelitis of vertebra, lumbar region; D50.9 Iron deficiency anemia, unspecified; E78.5 Hyperlipidemia, unspecified; I10 Essential (primary) hypertension; E87.6 Hypokalemia; Z79.01 Long term (current) use of anticoagulants; E88.09 Other disorders of plasma-protein metabolism, not elsewhere classified; Z68.23 Body mass index [BMI] 23.0-23.9, adult; Z20.822 Contact with and (suspected) exposure to COVID-19; M46.46 Discitis, unspecified, lumbar region; S31.829A Unspecified open wound of left buttock, initial encounter; X58.XXXA Exposure to other specified factors, initial encounter; Y93.9 Activity, unspecified; Y92.129 Unspecified place in nursing home as the place of occurrence of the external cause; Z66 Do not resuscitate
CPT/HCPCS: 36415; 36569; 71045-TC; 72148-TC; 72158-TC; 80048-TC; 80053-TC; 80076-TC; 80202-TC; 81001; 82728-TC; 83540-TC; 83605-TC; 83735-TC; 84100-TC; 84443-TC; 84484-TC; 85025-TC; 85730-TC; 87040-TC; 87081-TC; 87086-TC; 87186-TC; 93307-TC; 94799-TC; A6248; A6403; A9575; G0378; J0290; J0692; J2185; J2916; J3370; J7030; J7040; J7050; J7060

== ENCOUNTER 2021-11-20 15:59 | Inpatient (IN) | payer MEDICARE, BC ==
[~2021-11-20] VITALS: Ht 167.6 cm; Wt 66.7 kg
[~2021-11-20 15:59] MED LIST changes: +ACET-2605 PO; +ACET-868 PO; -AMPI1VIA26 IJ; +BISA10SU11 RC; +DOCU-141 PO; +HYDR-4303 PO; -Hydrocodone/Apap 5/325MG PO; +MAGN400O6 PO; +NA P133E RC
[2021-11-20] MEDS ORDERED: MEROPENEM 1 G in IV NS 0.9% 100 ML IV ONE (16:30)
[2021-11-20] MEDS ORDERED: VANCOMYCIN 1 GM in IV D5W 250 ML IV ONE (16:30)
--- NOTE | 2021-11-20 16:35 | NUR ---
radiology at bedside for chest xray.
[2021-11-20 16:44] LABS: BASOPHILS % (AUTO) 0.2 % (0.0-2.0); HEMATOCRIT 31 % (39-51); HEMOGLOBIN 10.1 g/dL (13.5-17.5); LYMPHOCYTES # (AUTO) 0.7 K/uL (0.8-4.8); LYMPHOCYTES % (AUTO) 10.1 % (20.0-44.0); MEAN CORPUSCULAR HGB CONC 33 g/dl (31.0-36.0); MEAN CORPUSCULAR VOLUME 87 fL (80-96); MONOCYTES # (AUTO) 0.5 K/uL (0.1-1.30); MONOCYTES % (AUTO) 7.5 % (2.0-12.0); NEUTROPHILS % (AUTO) 82.2 % (43.0-81.0); PLATELET COUNT (AUTO) 137 K/uL (150-450); WHITE BLOOD COUNT (AUTO) 7.2 K/uL (4.3-11.0)
[2021-11-20 16:54] LABS: CALCIUM, SERUM 8.7 mg/dL (8.5-10.1); CARBON DIOXIDE 25 mmol/L (21-32); CHLORIDE 106 mmol/L (98-107); CREATININE 1.3 mg/dL (0.6-1.3); GLUCOSE 171 mg/dL (74-106); POTASSIUM 3.6 mmol/L (3.5-5.1); SODIUM SERUM 141 mmol/L (136-145); UREA NITROGEN, BLOOD 48 mg/dL (7-18)
[2021-11-20 17:00] LABS: ALANINE AMINOTRANSFERASE 36 U/L (12-78); ALBUMIN 2.2 g/dL (3.4-5.0); ALKALINE PHOSPHATASE 92 U/L (46-116); ASPARTATE AMINOTRANSFERASE 51 U/L (15-37); BILIRUBIN,DIRECT 0.2 mg/dL (0.0-0.2); BILIRUBIN,TOTAL 0.4 mg/dL (0.2-1.0)
[2021-11-20] MEDS ORDERED: ACETAMINOPHEN ES 500 MG TABLET ONE (17:06)
--- NOTE | 2021-11-20 17:10 | NUR ---
MOVE SHEET SUBMITTED.
--- NOTE | 2021-11-20 17:16 | NUR ---
swabbed for covid. lab called for curing pickling packer.
--- NOTE | 2021-11-20 17:20 | NUR ---
dr mcmahan made aware of rectal temparature. verbal order for tylenol 1g po. order carried out.
[2021-11-20] MEDS ORDERED: ACETAMINOPHEN ES 500 MG TABLET PO ONE (17:30)
[2021-11-20] MEDS ORDERED: IPRA12.9 IH (17:55)
[2021-11-20] MEDS ORDERED: NITR1OIN2 TD (17:55)
[2021-11-20] MEDS ORDERED: ALBU2.5V13 IH (17:55)
[2021-11-20] MEDS ORDERED: METO50TA16 PO (17:55)
[2021-11-20] MEDS ORDERED: PANT40TA49 PO (17:55)
[2021-11-20] MEDS ORDERED: ALBUTEROL FS 2.5 MG/0.5 ML VIAL.NEB IH PRN (18:30)
[2021-11-20] MEDS ORDERED: Z GUARD REMEDY 4 OZ OINT TP PRN (18:30)
[2021-11-20] MEDS ORDERED: ONDANSETRON HCL/PF 4 MG/2 ML VIAL IVP PRN (18:30)
[2021-11-20] MEDS ORDERED: MAG HYDROX/AL HYDROX/SIMETH 30 ML UDC PO PRN (18:30)
[2021-11-20] MEDS ORDERED: NA PHOS,M-B/NA PHOS,DI-BA 1 EA ENEMA RC PRN (18:30)
[2021-11-20] MEDS ORDERED: MAGNESIUM HYDROXIDE 30 ML UDC PO PRN (18:30)
[2021-11-20] MEDS ORDERED: BISACODYL SUPP (10 MG) 10 MG/SUPP.RECT SUPP.RECT RC PRN (18:30)
--- NOTE | 2021-11-20 20:38 | NUR ---
REPORT GIVEN CECILIA CRANE FOR HERMELINDO
[2021-11-20] MEDS: NITROGLYCERIN 30 GM TUBE TD SCH (21:00)
[2021-11-20] MEDS: METOPROLOL TARTRATE 50 MG TABLET PO SCH (21:00)
[2021-11-20] MEDS: DOCUSATE SODIUM 100 MG CAPSULE PO SCH (21:00)
[2021-11-20] MEDS ORDERED: MORPHINE SULFATE INJ 4 MG/ML DISP.SYRIN IV PRN (21:00)
[2021-11-20 21:40] VITALS: BP 108/57
--- NOTE | 2021-11-20 21:41 | NUR ---
PT TRANSPORTED TO 3RD FLOOR VIA ACLS PROTOCOL
--- NOTE | 2021-11-20 21:45 | NUR ---
CRAPS MANAGER OPENING NOTE PT TRANSPORTED [facility] TO UNIT AT THIS TIME. PT FROM [facility] ADMITTED TO TELE FROM ER UNDER HEARSE DRIVER SUNSHINE FOR ADMITTING DX SEPSIS, BACTEREMIA. A/O X1-2 AND ABLE TO MAKE NEEDS KNOWN. PT STABLE ON ROOM AIR. NO SOB OR S/S OF RESPIRATORY DISTRESS. BREATHING EVEN AND UNLABORED. ON EXTERNAL CLIN NURSE SPEC READING SR 71 BPM. IV ACCESS SARAH PICC LINE, INTACT AND PATENT. NOTED WITH SACRAL SCARRING, WOUND CONSULT ORDERED. ORIENTED PT TO UNIT, STAFF, AND ROOM. ALL BELONGINGS ACCOUNTED FOR AND BELONGINGS LIST SIGNED. SAFETY PRECAUTIONS IN PLACE. BED IN LOWEST LOCKED POSITION, HOB ELEVATED, SIDE RAILS UP X3, AND CALL LIGHT AND TABLE WITHIN REACH. ALL NEEDS MET AT THIS TIME.
[2021-11-20 21:50] VITALS: BP 107/57
[2021-11-20] MEDS: MEROPENEM 500 MG in IV NS 0.9% 50 ML IV SCH (21:51)
[2021-11-20] MEDS: IV NS 0.9% 1,000 ML IV PRN (21:51)
[2021-11-21] VITALS: BP 109/54
[2021-11-21] MEDS: HYDROCODONE/APAP 5/325MG TABLET PO PRN (00:39)
--- NOTE | 2021-11-21 00:39 | NUR ---
RN NOTE PT COMPLAINED OF BACK PAIN 09/07. ADMINISTERED [place] 5-325 MG FOR MODERATE PAIN. MADE COMFORTABLE IN BED. ALL NEEDS MET AT THIS TIME.
[2021-11-21] MEDS: MEROPENEM 500 MG in IV NS 0.9% 50 ML IV SCH ×3 (04:29→20:23)
[2021-11-21 05:00] VITALS: BP 105/63
[2021-11-21] MEDS: VANCOMYCIN 0.75 GM in IV D5W 250 ML IV SCH ×2 (05:29→18:10)
[2021-11-21] MEDS: PANTOPRAZOLE 40 MG TABLET.DR PO SCH (05:37)
[2021-11-21] MEDS ORDERED: VANCOMYCIN 0.75 GM in IV D5W 250 ML IV SCH (06:00)
[2021-11-21 06:32] LABS: BASOPHILS % (AUTO) 0.3 % (0.0-2.0); EOSINOPHILS % (AUTO) 0.1 % (0.0-6.0); HEMATOCRIT 27 % (39-51); HEMOGLOBIN 8.7 g/dL (13.5-17.5); LYMPHOCYTES # (AUTO) 1.3 K/uL (0.8-4.8); LYMPHOCYTES % (AUTO) 16.7 % (20.0-44.0); MEAN CORPUSCULAR HGB CONC 32 g/dl (31.0-36.0); MEAN CORPUSCULAR VOLUME 89 fL (80-96); MONOCYTES # (AUTO) 0.8 K/uL (0.1-1.30); MONOCYTES % (AUTO) 11.1 % (2.0-12.0); NEUTROPHILS # (AUTO) 5.4 K/uL (1.8-8.9); NEUTROPHILS % (AUTO) 71.8 % (43.0-81.0); PLATELET COUNT (AUTO) 127 K/uL (150-450); RED BLOOD CELL COUNT(AUTO) 3.03 MIL/uL (4.5-6.0); WHITE BLOOD COUNT (AUTO) 7.6 K/uL (4.3-11.0)
[2021-11-21 06:39] LABS: CALCIUM, SERUM 8.6 mg/dL (8.5-10.1); CREATININE 1.3 mg/dL (0.6-1.3); MAGNESIUM 2.1 mg/dL (1.8-2.4); PHOSPHORUS 3.8 mg/dL (2.5-4.9); POTASSIUM 3.6 mmol/L (3.5-5.1)
--- NOTE | 2021-11-21 06:43 | NUR ---
EQUITY DIRECTOR CLOSING NOTE PT AWAKE IN BED. A/O X2-3 AND ABLE TO MAKE NEEDS KNOWN. PT STABLE ON ROOM AIR. NO SOB OR S/S OF RESPIRATORY DISTRESS. BREATHING EVEN AND UNLABORED. ON EXTERNAL DIRECTOR OF STATE READING SR 62 BPM. IV ACCESS SARAH PICC LINE, INTACT AND PATENT, RUNNING NS @ 75 ML/HR. ALL DUE MEDS GIVEN ORDERED. TURNED AND REPOSITIONED Q2H. SAFETY PRECAUTIONS IN PLACE AT ALL TIMES. BED IN LOWEST LOCKED POSITION, HOB ELEVATED, SIDE RAILS UP X3, AND CALL LIGHT AND TABLE WITHIN REACH. ALL NEEDS MET AT THIS TIME AND WILL ENDORSE TO ONCOMING NURSE FOR HERMELINDO.
--- NOTE | 2021-11-21 07:20 | NUR ---
BROADCAST TECHNICIAN OPENING NOTE RECEIVED PT ASLEEP BUT EASILY WOKEN UP IN BED. PATIENT IS A/O X2 AND ABLE TO MAKE NEEDS KNOWN. PT STABLE ON ROOM AIR, WITH EQUAL AND UNLABORED BREATHING WITH NO SOB OR S/S OF RESPIRATORY DISTRESS. ON EXTERNAL FIVE PIECE EXPANSION MAKER HAND READING SR WITH PAC'S WITH OCCASILNAL BIGEMINY. PATIENT WITH PICCLINE IV ACCESS ON ASRAH, INS @ 75 ML/HR. ALL DUE MEDS GIVEN ORDERED. SAFETY PRECAUTIONS IN PLACE AT ALL TIMES. BED IN LOWEST LOCKED POSITION, HOB ELEVATED, SIDE RAILS UP X3, AND CALL LIGHT AND TABLE WITHIN REACH. WILL CONTINUE TO MONITOR PATIENT.
--- NOTE | 2021-11-21 08:10 | NUR ---
HADOOP APPLICATION DEVELOPER NOTE BLOOD CULTURE RESULT RELAYED BY JANITORIAL MANAGER JUNE. PATIENT TESTED GRAM NEGATIVE RODS ON ALL VIALS FOR BLOOD CULTURE. RESULTS RELAYED TO DR. PRINCE. HOSPITALIST AWARE AND SAID PATIENT ALREADY ON ANTIBIOTICS. PATIENT REMAINS AFEBRILE. IN STABLE CONDITION.
[2021-11-21] MEDS: hydrALAZINE HCL 25 MG TABLET PO SCH ×3 (09:00→18:10)
[2021-11-21] MEDS: APIXABAN 5 MG TABLET PO SCH ×3 (09:00→18:11)
[2021-11-21] MEDS: DOCUSATE SODIUM 100 MG CAPSULE PO SCH ×3 (09:00→20:33)
[2021-11-21] MEDS: METOPROLOL TARTRATE 50 MG TABLET PO SCH ×3 (09:00→20:35)
[2021-11-21] MEDS: DILTIAZEM HCL CD 180 MG PO SCH ×2 (09:00→10:14)
[2021-11-21] MEDS: BRIMONIDINE TARTRATE OPHT SOLN 5 ML BOTTLE OP SCH ×2 (10:00→18:22)
[2021-11-21] MEDS: NITROGLYCERIN 30 GM TUBE TD SCH ×2 (10:07→20:37)
--- NOTE | 2021-11-21 10:10 | NUR ---
WOUND CARE CONSULT: PT PRESENTS WITH SCARRING AND INTACT DEEP TISSUE INJURY/DISCOLORATION TO SACRAL AREA, PRESENT ON ADMISSION. RECOMMENDATIONS MADE FOR SKIN PROTECTION. DISCUSSED WITH NURSING STAFF. IN AGREEMENT WITH PLAN OF CARE. Addendum: 11/21/21 at 1011 by ANANDA ALDRIDGE WNDNU Amended: Links added.
[2021-11-21 11:37] LABS: BAND % (MANUAL) 2 % (0.0-5.0); EOSINOPHILS % (MANUAL) 1 % (0-4); LYMPHOCYTES % (MANUAL) 17 % (16-48); MONOCYTES % (MANUAL) 10 % (0-11.0); NEUTROPHILS % (MANUAL) 70 (42-76)
[2021-11-21] MEDS: ENSURE ENLIVE 237 ML LIQUID (VANILLA) PO SCH ×2 (13:00→18:17)
[2021-11-21] MEDS: IV NS 0.9% 1,000 ML IV PRN (16:22)
--- NOTE | 2021-11-21 16:30 | NUR ---
PEN TESTER NOTE PATIENT BROUGHT DOWN FOR PROCEDURE MRI ORDERED. IN STABLE CONDITION.
[2021-11-21] MEDS: ATORVASTATIN 40 MG TABLET PO SCH (18:08)
[2021-11-21] MEDS ORDERED: GADOTERATE MEGLUMINE 10 MMOL/20 ML VIAL IV ONE (18:19)
--- NOTE | 2021-11-21 19:05 | NUR ---
DIRECTOR CLOSING NOTE PT ASLEEP BUT EASILY WOKEN UP IN BED. PATIENT IS A/O X3 AND ABLE TO MAKE NEEDS KNOWN. PT STABLE ON ROOM AIR, WITH EQUAL AND UNLABORED BREATHING WITH NO SOB OR S/S OF RESPIRATORY DISTRESS. ON EXTERNAL CROCHETER READING SR WITH PVC'S WITH OCCASIONALLY BIGEMINY. PATIENT WITH PICCLINE IV ACCESS ON SARAH, NS @ 75 ML/HR. ALL DUE MEDS GIVEN ORDERED. SAFETY PRECAUTIONS IN PLACE AT ALL TIMES. BED IN LOWEST LOCKED POSITION, HOB ELEVATED, SIDE RAILS UP X3, AND CALL LIGHT AND TABLE WITHIN REACH. WILL ENDORSE PATIENT FOR CONTINUITY OF CARE
--- NOTE | 2021-11-21 19:30 | NUR ---
GLASS BULB MACHINE ADJUSTER OPENING NOTES RECEIVED PATIENT IN BED; AWAKE, ALERT AND ORIENTED X 2. ON ROOM AIR; TOLERATING WELL. BREATHING EVEN AND UNLABORED. NOT IN ANY FORM OF RESPIRATORY DISTRESS. DENIES ANY PAIN OR DISCOMFORT AT THIS TIME. WITH PICC LINE @ RIGHT UPPER ARM INFUSING WITH NS 1L REGULATED @ 75 ML/HR; FLUSHES WELL. ON TELEMETRY MONITORING WITH CURRENT READING OF SR WITH PVC AND OCCASIONAL BIGEMINY. SAFETY MEASURES IMPLEMENTED: CALL LIGHT AND TABLE WITHIN REACH, SIDE RAILS UP X 2, BED IN LOWEST LOCKED POSITION. WILL CONTINUE TO MONITOR
[2021-11-21 20:00] VITALS: BP 126/54
[2021-11-22] VITALS: BP 111/61
[2021-11-22 04:00] VITALS: BP 115/48
[2021-11-22] MEDS: ACETAMINOPHEN 325 MG TABLET PO PRN ×2 (04:19→22:26)
[2021-11-22] MEDS: MEROPENEM 500 MG in IV NS 0.9% 50 ML IV SCH ×3 (04:19→20:53)
[2021-11-22] MEDS: PANTOPRAZOLE 40 MG TABLET.DR PO SCH (05:14)
[2021-11-22 06:38] LABS: BASOPHILS % (AUTO) 0.3 % (0.0-2.0); EOSINOPHILS % (AUTO) 0.2 % (0.0-6.0); HEMATOCRIT 27 % (39-51); LYMPHOCYTES # (AUTO) 1.1 K/uL (0.8-4.8); LYMPHOCYTES % (AUTO) 13.8 % (20.0-44.0); MEAN CORPUSCULAR HGB CONC 33 g/dl (31.0-36.0); MEAN CORPUSCULAR VOLUME 87 fL (80-96); MONOCYTES # (AUTO) 0.8 K/uL (0.1-1.30); MONOCYTES % (AUTO) 10.2 % (2.0-12.0); NEUTROPHILS # (AUTO) 6.2 K/uL (1.8-8.9); NEUTROPHILS % (AUTO) 75.5 % (43.0-81.0); PLATELET COUNT (AUTO) 146 K/uL (150-450); WHITE BLOOD COUNT (AUTO) 8.2 K/uL (4.3-11.0)
[2021-11-22 06:49] LABS: CALCIUM, SERUM 8.5 mg/dL (8.5-10.1); POTASSIUM 3.7 mmol/L (3.5-5.1)
--- NOTE | 2021-11-22 07:10 | NUR ---
NEUROSURGEON CLOSING NOTE PATIENT IN BED; AWAKE, A/O X 1. WITH PERIODS OF CONFUSION. STABLE ON ROOM AIR. BREATHING EVEN AND NONLABORED. IN NO ACUTE DISTRESS. NO S/S OF PAIN OR DISCOMFORT NOTED. WITH PICC LINE @ SARAH INFUSING WITH NS 1L REGULATED @ 75 ML/HR; FLUSHING WELL. ON TELE MONITORING WITH CURRENT READING OF SR WITH PVCs AND OCCASIONAL BIGEMINY HR-65 BPM. SAFETY MEASURES MAINTAINED: CALL LIGHT AND TABLE WITHIN REACH, SIDE RAILS UP X 2, BED IN LOWEST LOCKED POSITION. ENDORSED TO JOHNATHAN RN FOR HERMELINDO.
[2021-11-22] MEDS: VANCOMYCIN 0.75 GM in IV D5W 250 ML IV SCH ×2 (07:17→17:05)
--- NOTE | 2021-11-22 07:57 | NUR ---
LUBRICATION EQUIPMENT SERVICER OPENING NOTE Patient in bed, awake. A/O x 1, with periods of confusion. On room air, breathing evenly and unlabored. No SOB or s/s of distress noted. IV access on SARAH PICC line infusing NS at 75 ml/hr. On tele monitoring showing SR with PVCs, HR 64. Safety precautions in place: bed in low, locked position; siderails up x 2; call light within reach. Will continue to monitor.
[2021-11-22 08:00] VITALS: BP 112/44
[2021-11-22] MEDS: DOCUSATE SODIUM 100 MG CAPSULE PO SCH ×2 (08:39→20:55)
[2021-11-22] MEDS: BRIMONIDINE TARTRATE OPHT SOLN 5 ML BOTTLE OP SCH ×2 (08:39→17:04)
[2021-11-22] MEDS: NITROGLYCERIN 30 GM TUBE TD SCH ×2 (08:40→20:53)
[2021-11-22] MEDS: DILTIAZEM HCL CD 180 MG PO SCH (08:40)
[2021-11-22] MEDS: ENSURE ENLIVE 237 ML LIQUID (VANILLA) PO SCH ×3 (08:40→17:05)
[2021-11-22] MEDS: hydrALAZINE HCL 25 MG TABLET PO SCH ×2 (08:40→17:05)
[2021-11-22] MEDS: METOPROLOL TARTRATE 50 MG TABLET PO SCH ×2 (08:41→22:02)
[2021-11-22] MEDS: APIXABAN 5 MG TABLET PO SCH ×2 (08:43→17:06)
[2021-11-22] MEDS: IV NS 0.9% 1,000 ML IV PRN (10:17)
[2021-11-22 16:00] VITALS: BP 138/60
[2021-11-22] MEDS: ATORVASTATIN 40 MG TABLET PO SCH (17:04)
--- NOTE | 2021-11-22 18:53 | NUR ---
VEGETABLE THINNER CLOSING NOTE Patient in bed, asleep. A/O x 1, with periods of confusion. Stable on room air, breathing evenly and unlabored. No SOB or s/s of distress noted. IV access on SARAH PICC line infusing NS at 75 ml/hr. On tele monitoring showing SR with PVCs, HR 70. Patient kept clean and dry. Wound care done, as ordered. Turned and repositioned, as tolerated. Due meds given. Safety precautions maintained: bed in low, locked position; siderails up x 2; call light within reach. Will endorse to restaurant shift supervisor nurse for HERMELINDO.
--- NOTE | 2021-11-22 19:35 | NUR ---
RN OPENING NOTES RECEIVED PT IN BED, ASLEEP, AWAKENS TO VERBAL STIMULI. AOx1. ON RA AND TOLERATING WELL. NO SOB NOTED. NO S/SX OF RESPIRATORY DISTRESS NOTED. TELE MONITOR DETECTS SINUS RHYTHM WITH PVCs. IV ACCESS IN SARAH PICC LINE RUNNING NS @75 ML/HR. SAFETY PRECAUTIONS IN PLACE: BED IN LOWEST, LOCKED POSITION, SIDERAILS UPx2, AND BRAKES ON. TABLE AND CALL LIGHT WITHIN REACH. ALL NEEDS MET AT THIS TIME.
[2021-11-22 20:00] VITALS: BP 121/57
--- NOTE | 2021-11-22 22:26 | NUR ---
RN NOTES ADMINISTERED TYLENOL FOR PAIN.
[2021-11-22 23:32] VITALS: BP 111/48
[2021-11-23] MEDS: IV NS 0.9% 1,000 ML IV PRN ×2 (00:45→20:12)
[2021-11-23] MEDS: MEROPENEM 500 MG in IV NS 0.9% 50 ML IV SCH ×3 (04:59→20:39)
[2021-11-23] MEDS: PANTOPRAZOLE 40 MG TABLET.DR PO SCH (05:44)
[2021-11-23] MEDS: VANCOMYCIN 0.75 GM in IV D5W 250 ML IV SCH ×2 (05:44→17:08)
[2021-11-23 06:13] LABS: BASOPHILS % (AUTO) 0.4 % (0.0-2.0); EOSINOPHILS % (AUTO) 1.6 % (0.0-6.0); HEMATOCRIT 31 % (39-51); HEMOGLOBIN 9.9 g/dL (13.5-17.5); LYMPHOCYTES # (AUTO) 1.1 K/uL (0.8-4.8); LYMPHOCYTES % (AUTO) 13.2 % (20.0-44.0); MEAN CORPUSCULAR HGB CONC 32 g/dl (31.0-36.0); MEAN CORPUSCULAR VOLUME 88 fL (80-96); MONOCYTES # (AUTO) 0.5 K/uL (0.1-1.30); MONOCYTES % (AUTO) 6.5 % (2.0-12.0); NEUTROPHILS # (AUTO) 6.5 K/uL (1.8-8.9); NEUTROPHILS % (AUTO) 78.3 % (43.0-81.0); PLATELET COUNT (AUTO) 174 K/uL (150-450); RED BLOOD CELL COUNT(AUTO) 3.49 MIL/uL (4.5-6.0); WHITE BLOOD COUNT (AUTO) 8.2 K/uL (4.3-11.0)
--- NOTE | 2021-11-23 06:40 | NUR ---
RN CLOSING NOTES PT IN BED, ASLEEP, AWAKENS TO VERBAL STIMULI. AOx2, CONFUSION. ON RA AND TOLERATING WELL. NO SOB NOTED. NO S/SX OF RESPIRATORY DISTRESS NOTED. TELE MONITOR DETECTS SINUS RHYTHM WITH PVCs. IV ACCESS IN SARAH PICC LINE RUNNING NS @75 ML/HR. ALL ORDERS CARRIED OUT. ALL NEEDS MET. PT KEPT CLEAN AND DRY. SAFETY PRECAUTIONS IN PLACE: BED IN LOWEST, LOCKED POSITION, SIDERAILS UPx2, AND BRAKES ON. TABLE AND CALL LIGHT WITHIN REACH. WILL ENDORSE TO ONCOMING SHIFT FOR HERMELINDO.
[2021-11-23 06:44] LABS: CALCIUM, SERUM 8.6 mg/dL (8.5-10.1)
[2021-11-23 08:27] VITALS: BP 122/52
--- NOTE | 2021-11-23 08:30 | NUR ---
LOCAL COMBINATION TRUCK DRIVER OPENING NOTE Patient in bed, asleep. A/O x 1, with periods of confusion. On room air, breathing evenly and unlabored. No SOB or s/s of distress noted. IV access on SARAH PICC line infusing NS at 75 ml/hr. On tele monitoring showing SR with PVCs, HR 80's. Safety precautions in place: bed in low, locked position; siderails up x 2; call light within reach. Will continue to monitor.
[2021-11-23] MEDS: BRIMONIDINE TARTRATE OPHT SOLN 5 ML BOTTLE OP SCH ×2 (09:13→17:08)
[2021-11-23] MEDS: NITROGLYCERIN 30 GM TUBE TD SCH ×2 (09:13→20:39)
[2021-11-23] MEDS: DOCUSATE SODIUM 100 MG CAPSULE PO SCH ×2 (09:13→20:39)
[2021-11-23] MEDS: METOPROLOL TARTRATE 50 MG TABLET PO SCH ×2 (09:14→20:32)
[2021-11-23] MEDS: DILTIAZEM HCL CD 180 MG PO SCH (09:14)
[2021-11-23] MEDS: hydrALAZINE HCL 25 MG TABLET PO SCH ×2 (09:14→16:45)
[2021-11-23] MEDS: APIXABAN 5 MG TABLET PO SCH ×2 (09:19→17:10)
[2021-11-23] MEDS: ENSURE ENLIVE 237 ML LIQUID (VANILLA) PO SCH ×3 (09:20→17:08)
[2021-11-23] MEDS: HYDROCODONE/APAP 5/325MG TABLET PO PRN (11:58)
--- NOTE | 2021-11-23 11:58 | NUR ---
RN NOTE Patient complained of back pain, 7/10 on pain scale. PRN [place] 5/325 given. Will continue to monitor.
[2021-11-23 14:19] VITALS: BP 102/56
[2021-11-23 16:30] VITALS: BP 96/44
[2021-11-23] MEDS: ATORVASTATIN 40 MG TABLET PO SCH (17:08)
--- NOTE | 2021-11-23 19:16 | NUR ---
HOPPER OPERATOR CLOSING NOTE Patient in bed, resting. A/O x 1, with periods of confusion. Stable on room air, breathing evenly and unlabored. No SOB or s/s of distress noted. IV access on SARAH PICC line infusing NS at 75 ml/hr. On tele monitoring showing SR with PVCs, HR 62. Patient kept clean and dry. Due meds given. Turned and repositioned, as tolerated. Safety precautions maintained: bed in low, locked position; siderails up x 2; call light within reach. Will endorse to manufacturing shift supervisor nurse for HERMELINDO.
--- NOTE | 2021-11-23 19:54 | NUR ---
RN OPENING NOTES RECEIVED PT IN BED, AWAKE, TALKING ON CELLPHONE. AOx1. ON RA AND TOLERATING WELL. NO SOB NOTED. NO S/SX OF RESPIRATORY DISTRESS NOTED. TELE MONITOR DETECTS SINUS RHYTHM WITH RATE OF 68. IV ACCESS IN SARAH PICC LINE RUNNING NS @75 ML/HR. SAFETY PRECAUTIONS IN PLACE: BED IN LOWEST, LOCKED POSITION, SIDERAILS UPx2, AND BRAKES ON. TABLE AND CALL LIGHT WITHIN REACH. ALL NEEDS MET AT THIS TIME.
[2021-11-23 20:00] VITALS: BP 131/42
--- NOTE | 2021-11-23 20:32 | NUR ---
RN NOTES DID NOT ADMINISTERED METOPROLOL BECAUSE HEART RATE IS 60.
[2021-11-24] VITALS: BP 137/61
[2021-11-24 04:45] VITALS: BP 109/74
[2021-11-24] MEDS: MEROPENEM 500 MG in IV NS 0.9% 50 ML IV SCH ×2 (05:10→12:39)
[2021-11-24] MEDS: PANTOPRAZOLE 40 MG TABLET.DR PO SCH (05:15)
--- NOTE | 2021-11-24 06:37 | NUR ---
RN CLOSING NOTES PT IN BED, ASLEEP, AWAKENS TO VERBAL STIMULI. AOx1. ON RA AND TOLERATING WELL. NO SOB NOTED. NO S/SX OF RESPIRATORY DISTRESS NOTED. TELE MONITOR DETECTS SINUS RHYTHM WITH RATE OF 68. IV ACCESS IN SARAH PICC LINE RUNNING NS @75 ML/HR. ALL ORDERS CARRIED OUT. ALL NEEDS MET. PT KEPT CLEAN AND DRY. SAFETY PRECAUTIONS IN PLACE: BED IN LOWEST, LOCKED POSITION, SIDERAILS UPx2, AND BRAKES ON. TABLE AND CALL LIGHT WITHIN REACH. WILL ENDORSE TO ONCOMING SHIFT FOR HERMELINDO.
--- NOTE | 2021-11-24 07:20 | NUR ---
LOCKSTITCH COAT JOINER OPENING NOTES RECEIVED PT IN BED, ASLEEP, EASILY AWAKENS BY VERBAL STIMULI. AOx1.NO SOB OR RESPIRATORY DISTRESS NOTED. ON ROOM AIR AND TOLERATING WELL. TELE MONITOR WITH CURRENT READING SINUS RHYTHM WITH RATE OF 69 BPM WITH PVC. IV ACCESS IN SARAH PICC LINE RUNNING NS @75 ML/HR. KEPT PT CLEAN AND DRY. SAFETY PRECAUTIONS IN PLACE: BED IN LOWEST, LOCKED POSITION, SIDE RAILS UPx2, CALL LIGHT WITHIN REACH. WILL MONITOR PT ACCORDINGLY.
[2021-11-24 07:35] LABS: BASOPHILS % (AUTO) 0.2 % (0.0-2.0); EOSINOPHILS % (AUTO) 1.2 % (0.0-6.0); HEMATOCRIT 29 % (39-51); HEMOGLOBIN 9.2 g/dL (13.5-17.5); LYMPHOCYTES # (AUTO) 1.2 K/uL (0.8-4.8); LYMPHOCYTES % (AUTO) 15.9 % (20.0-44.0); MEAN CORPUSCULAR HGB CONC 32 g/dl (31.0-36.0); MEAN CORPUSCULAR VOLUME 89 fL (80-96); MONOCYTES # (AUTO) 0.5 K/uL (0.1-1.30); NEUTROPHILS # (AUTO) 5.9 K/uL (1.8-8.9); NEUTROPHILS % (AUTO) 75.7 % (43.0-81.0); PLATELET COUNT (AUTO) 198 K/uL (150-450); RED BLOOD CELL COUNT(AUTO) 3.27 MIL/uL (4.5-6.0); WHITE BLOOD COUNT (AUTO) 7.8 K/uL (4.3-11.0)
[2021-11-24 07:47] LABS: CALCIUM, SERUM 7.9 mg/dL (8.5-10.1); CREATININE 0.8 mg/dL (0.6-1.3); POTASSIUM 3.8 mmol/L (3.5-5.1)
[2021-11-24 08:00] VITALS: BP 138/61
[2021-11-24] MEDS: DOCUSATE SODIUM 100 MG CAPSULE PO SCH ×2 (08:37→21:00)
[2021-11-24] MEDS: DILTIAZEM HCL CD 180 MG PO SCH (08:38)
[2021-11-24] MEDS: hydrALAZINE HCL 25 MG TABLET PO SCH ×2 (08:38→17:17)
[2021-11-24] MEDS: METOPROLOL TARTRATE 50 MG TABLET PO SCH ×2 (08:39→21:00)
[2021-11-24] MEDS: APIXABAN 5 MG TABLET PO SCH ×2 (08:41→17:18)
[2021-11-24] MEDS: ENSURE ENLIVE 237 ML LIQUID (VANILLA) PO SCH ×3 (08:41→17:19)
[2021-11-24] MEDS: BRIMONIDINE TARTRATE OPHT SOLN 5 ML BOTTLE OP SCH ×2 (08:42→17:49)
[2021-11-24] MEDS: NITROGLYCERIN 30 GM TUBE TD SCH ×2 (08:42→21:21)
[2021-11-24] MEDS: IV NS 0.9% 1,000 ML IV PRN (11:56)
[2021-11-24 12:00] VITALS: BP 123/70
--- NOTE | 2021-11-24 13:00 | NUR ---
RN NOTES: COLLECTED URINE. CALLED LAB FOR EXCHANGE CONSULTANT.
[2021-11-24] MEDS: ACETAMINOPHEN 325 MG TABLET PO PRN (14:18)
[2021-11-24 16:00] VITALS: BP 125/60
[2021-11-24 16:19] LABS: BILIRUBIN,URINE NEGATIVE (NEGATIVE); COLOR,URINE YELLOW (YELLOW); LEUKOCYTE ESTERASE ,URINE NEGATIVE (NEGATIVE); NITRITE, URINE NEGATIVE (NEGATIVE); PH,URINE 5.5 (5.0-8.0); PROTEIN,URINE NEGATIVE (NEGATIVE); UGLUCOSE NEGATIVE (NEGATIVE); UROBILINOGEN,URINE 0.2 EU/dL (0.2)
[2021-11-24] MEDS: ATORVASTATIN 40 MG TABLET PO SCH (17:19)
--- NOTE | 2021-11-24 18:42 | NUR ---
GRAVES REGISTRATION SPECIALIST CLOSING NOTES PT IN BED, AWAKE AOx1.NO SOB OR RESPIRATORY DISTRESS NOTED. ON ROOM AIR AND TOLERATING WELL. TELE MONITOR WITH CURRENT READING SINUS RHYTHM WITH RATE OF 78 BPM WITH PVC. IV ACCESS IN SARAH PICC LINE RUNNING NS @75 ML/HR. KEPT PT CLEAN AND DRY. SAFETY PRECAUTIONS IN PLACE: BED IN LOWEST, LOCKED POSITION, SIDE RAILS UPx2, CALL LIGHT WITHIN REACH. WILL MONITOR PT ACCORDINGLY. ENDORSED TO NOC SHIFT FOR HERMELINDO.
--- NOTE | 2021-11-24 19:24 | NUR ---
RN OPENING NOTE PATIENT AWAKE IN BED. A/OX1. NO S/S OF DISTRESS, BREATHING WITHOUT DIFFICULTY ON ROOM AIR. SARAH PICC INTACT AND PATENT W/ NS 75ML/HR. TELE READS SR 60. SAFETY MEASURES IN PLACE: BED LOCKED AT LOWEST POSITION, RAILS UP X2, CALL CARVAJAL WITHIN REACH. WILL CONTINUE TO MONITOR PATIENT.
[2021-11-24 20:00] VITALS: BP 126/65
[2021-11-24] MEDS ORDERED: MEROPENEM 1,000 MG in IV NS 0.9% 50 ML IV SCH (21:00)
[2021-11-24] MEDS: MEROPENEM 1 G in IV NS 0.9% 100 ML IV SCH (21:20)
[2021-11-25 04:00] VITALS: BP 141/71
[2021-11-25] MEDS: MEROPENEM 1 G in IV NS 0.9% 100 ML IV SCH ×3 (05:26→21:53)
[2021-11-25] MEDS: PANTOPRAZOLE 40 MG TABLET.DR PO SCH (05:27)
[2021-11-25] MEDS: IV NS 0.9% 1,000 ML IV PRN ×2 (05:29→16:50)
--- NOTE | 2021-11-25 06:37 | NUR ---
RN CLOSING NOTE PATIENT AWAKE IN BED. A/OX1. NO S/S OF DISTRESS, BREATHING WITHOUT DIFFICULTY ON ROOM AIR. SARAH PICC INTACT AND PATENT W/ NS 75ML/HR. TELE MONITOR READS SR 75, WITH PVCs AND BBB. SAFETY MEASURES IN PLACE: BED LOCKED AND AT LOWEST POSITION, RAILS UP X2, CALL CARVAJAL WITHIN REACH. WILL ENDORSE TO NEXT SHIFT FOR HERMELINDO.
[2021-11-25 07:11] LABS: BASOPHILS % (AUTO) 0.2 % (0.0-2.0); EOSINOPHILS % (AUTO) 1.4 % (0.0-6.0); HEMATOCRIT 28 % (39-51); HEMOGLOBIN 9.4 g/dL (13.5-17.5); LYMPHOCYTES # (AUTO) 1.2 K/uL (0.8-4.8); LYMPHOCYTES % (AUTO) 16.1 % (20.0-44.0); MEAN CORPUSCULAR HGB CONC 33 g/dl (31.0-36.0); MEAN CORPUSCULAR VOLUME 88 fL (80-96); MONOCYTES # (AUTO) 0.5 K/uL (0.1-1.30); MONOCYTES % (AUTO) 7.2 % (2.0-12.0); NEUTROPHILS # (AUTO) 5.8 K/uL (1.8-8.9); NEUTROPHILS % (AUTO) 75.1 % (43.0-81.0); PLATELET COUNT (AUTO) 251 K/uL (150-450); RED BLOOD CELL COUNT(AUTO) 3.24 MIL/uL (4.5-6.0); WHITE BLOOD COUNT (AUTO) 7.7 K/uL (4.3-11.0)
--- NOTE | 2021-11-25 07:50 | NUR ---
TOE PUNCHER OPENING NOTES RECEIVED PT IN BED, ASLEEP, EASILY AWAKENS BY VERBAL STIMULI. AOx1.NO SOB OR RESPIRATORY DISTRESS NOTED. ON ROOM AIR AND TOLERATING WELL. TELE MONITOR WITH CURRENT READING SINUS RHYTHM WITH RATE OF 75 BPM WITH PVC AND BBB. IV ACCESS IN SARAH PICC LINE RUNNING NS @75 ML/HR. KEPT PT CLEAN AND DRY. SAFETY PRECAUTIONS IN PLACE: BED IN LOWEST, LOCKED POSITION, SIDE RAILS UPx2, CALL LIGHT WITHIN REACH. WILL MONITOR PT ACCORDINGLY.
[2021-11-25 08:00] VITALS: BP 133/61
[2021-11-25] MEDS: DOCUSATE SODIUM 100 MG CAPSULE PO SCH ×2 (08:19→21:47)
[2021-11-25] MEDS: METOPROLOL TARTRATE 50 MG TABLET PO SCH ×2 (08:22→21:00)
[2021-11-25] MEDS: BRIMONIDINE TARTRATE OPHT SOLN 5 ML BOTTLE OP SCH ×2 (08:23→16:40)
[2021-11-25] MEDS: DILTIAZEM HCL CD 180 MG PO SCH (08:23)
[2021-11-25] MEDS: hydrALAZINE HCL 25 MG TABLET PO SCH ×3 (08:23→16:43)
[2021-11-25] MEDS: NITROGLYCERIN 30 GM TUBE TD SCH ×2 (08:24→21:53)
[2021-11-25] MEDS: ENSURE ENLIVE 237 ML LIQUID (VANILLA) PO SCH ×3 (08:24→16:43)
[2021-11-25] MEDS: APIXABAN 5 MG TABLET PO SCH ×2 (08:26→16:40)
[2021-11-25 12:00] VITALS: BP_SYST 114; BP_SYST 128; BP_DIAS 54; BP_DIAS 58
[2021-11-25 16:00] VITALS: BP 115/60
[2021-11-25] MEDS: ATORVASTATIN 40 MG TABLET PO SCH (17:00)
--- NOTE | 2021-11-25 18:34 | NUR ---
HOT STICK MAN CLOSING NOTES PT IN BED, AWAKE AOx1.NO SOB OR RESPIRATORY DISTRESS NOTED. ON ROOM AIR AND TOLERATING WELL. TELE MONITOR WITH CURRENT READING SINUS RHYTHM WITH RATE OF 68 BPM WITH PVC. IV ACCESS IN SARAH PICC LINE RUNNING NS @75 ML/HR. KEPT PT CLEAN AND DRY. SAFETY PRECAUTIONS IN PLACE: BED IN LOWEST, LOCKED POSITION, SIDE RAILS UPx2, CALL LIGHT WITHIN REACH. WILL MONITOR PT ACCORDINGLY. ENDORSED TO NOC SHIFT FOR HERMELINDO.
--- NOTE | 2021-11-25 19:30 | NUR ---
PEA VINER MECHANIC OPENING NOTE RECEIVED PT IN BED, AWAKE, BUT PT IS CONFUSED. PT A/O x 1-2, ABLE TO MAKE SIMPLE NEEDS KNOWN. ON RA AND TOLERATING WELL. NO SOB NOTED. NO S/S OF RESPIRATORY DISTRESS NOTED. PT ON TELE MONITOR READING SINUS RHYTHM WITH RATE OF 68. PT HAS RIGHT UA PICC LINE RUNNING NS @75 ML/HR. SAFETY PRECAUTIONS IN PLACE: BED IN LOWEST, LOCKED POSITION, SIDE RAILS UP x2. BED SIDE TABLE AND CALL LIGHT WITHIN REACH. WILL CONTINUE TO MONITOR PT.
[2021-11-25 20:00] VITALS: BP 117/56
[2021-11-26] VITALS (7 sets, daily range): BP systolic 114–132; BP diastolic 57–67
--- NOTE | 2021-11-26 01:36 | NUR ---
FINISHING MANAGER NOTE PER WRAP CHECKER, TELE MONITOR READING ELEVATED T WAVES; STAT EKG ORDERED; EKG RESULTED, SHOWS ST ELEVATION, CHARGE NURSE MADE AWARE; STAT TROPONIN ORDERED; SPOKE WITH PROGRAM SPECIALIST, PER CHARGE NURSE OK FOR LAB TO DRAW MORNING LABS WITH STAT TROPONIN; AWAITING PROGRAM SPECIALIST FOR STAT BLOOD DRAW
[2021-11-26] MEDS: MEROPENEM 1 G in IV NS 0.9% 100 ML IV SCH ×3 (05:03→20:50)
[2021-11-26] MEDS: PANTOPRAZOLE 40 MG TABLET.DR PO SCH (05:03)
[2021-11-26 06:49] LABS: BASOPHILS % (AUTO) 0.3 % (0.0-2.0); HEMATOCRIT 26 % (39-51); HEMOGLOBIN 8.5 g/dL (13.5-17.5); LYMPHOCYTES # (AUTO) 1.6 K/uL (0.8-4.8); LYMPHOCYTES % (AUTO) 20.3 % (20.0-44.0); MEAN CORPUSCULAR HGB CONC 32 g/dl (31.0-36.0); MEAN CORPUSCULAR VOLUME 88 fL (80-96); MONOCYTES # (AUTO) 0.6 K/uL (0.1-1.30); MONOCYTES % (AUTO) 8.2 % (2.0-12.0); NEUTROPHILS # (AUTO) 5.4 K/uL (1.8-8.9); NEUTROPHILS % (AUTO) 69.2 % (43.0-81.0); PLATELET COUNT (AUTO) 246 K/uL (150-450); RED BLOOD CELL COUNT(AUTO) 2.99 MIL/uL (4.5-6.0); WHITE BLOOD COUNT (AUTO) 7.8 K/uL (4.3-11.0)
--- NOTE | 2021-11-26 07:29 | NUR ---
POLE INSPECTOR CLOSING NOTE PATIENT LEFT COMFORTABLY RESTING IN BED. A/OX1-2. NO S/S OF DISTRESS, BREATHING WITHOUT DIFFICULTY ON ROOM AIR. RIGHT UPPER ARM PICC INTACT AND PATENT W/ NS 75ML/HR. PT ON TELE MONITOR SR 70 WITH PVCs AND BBB. SAFETY MEASURES IN PLACE: BED LOCKED AND AT LOWEST POSITION, RAILS UP X2, CALL CARVAJAL WITHIN REACH. WILL ENDORSE PT'S CARE TO NEXT SHIFT NURSE .
--- NOTE | 2021-11-26 07:30 | NUR ---
SINGLE STROKE PREFORMER OPENING NOTES RECEIVED PT IN BED, ASLEEP, EASILY AWAKENS BY VERBAL STIMULI. A/Ox1. NO SOB OR RESPIRATORY DISTRESS NOTED. ON ROOM AIR AND TOLERATING WELL. TELE MONITOR WITH CURRENT READING SINUS RHYTHM WITH RATE OF 75 BPM WITH PVC AND BBB. IV ACCESS IN SARAH PICC LINE RUNNING NS @75 ML/HR. KEPT PT CLEAN AND DRY. SAFETY PRECAUTIONS IN PLACE: BED IN LOWEST, LOCKED POSITION, SIDE RAILS UPx2, CALL LIGHT WITHIN REACH. WILL MONITOR PT ACCORDINGLY.
[2021-11-26] MEDS: BRIMONIDINE TARTRATE OPHT SOLN 5 ML BOTTLE OP SCH ×2 (08:48→16:20)
[2021-11-26] MEDS: NITROGLYCERIN 30 GM TUBE TD SCH ×2 (08:52→20:52)
[2021-11-26] MEDS: DILTIAZEM HCL CD 180 MG PO SCH (08:53)
[2021-11-26] MEDS: APIXABAN 5 MG TABLET PO SCH ×2 (08:55→16:23)
[2021-11-26] MEDS: DOCUSATE SODIUM 100 MG CAPSULE PO SCH ×2 (08:56→20:51)
[2021-11-26] MEDS: hydrALAZINE HCL 25 MG TABLET PO SCH ×2 (08:56→16:22)
[2021-11-26] MEDS: METOPROLOL TARTRATE 50 MG TABLET PO SCH ×2 (08:56→20:52)
[2021-11-26] MEDS: ENSURE ENLIVE 237 ML LIQUID (VANILLA) PO SCH ×3 (09:02→16:23)
[2021-11-26] MEDS: IV NS 0.9% 1,000 ML IV PRN (15:40)
[2021-11-26] MEDS: ATORVASTATIN 40 MG TABLET PO SCH (17:20)
--- NOTE | 2021-11-26 18:36 | NUR ---
MS RN CLOSING NOTES PT ASLEEP IN BED LYING ON BACK. EASILY AWAKENS WITH VERBAL STIMULI. A/O x 1. NO SOB OR RESPIRATORY DISTRESS NOTED. ON ROOM AIR AND TOLERATING WELL. IV ACCESS IN SARAH PICC LINE RUNNING NS @75 ML/HR. KEPT PT CLEAN AND DRY. SAFETY PRECAUTIONS IN PLACE: BED IN LOWEST, LOCKED POSITION, SIDE RAILS UPx2, CALL LIGHT WITHIN REACH. WILL ENDORSE TO ENERGY CONTROL OFFICER FOR CONTINUITY OF CARE.
--- NOTE | 2021-11-26 19:30 | NUR ---
MS RN NOTES RECEIVED LAYING COMFORTABLY ON BED,BREATHING EASY,NO SOB,IVF NS AT 75ML/HR RATE IN PROGRESS VIA IV PUMP,PICC LINE PATENT.SACRAL DTI WITH MEPILEX IN PLACE.ENCOURAGED TO POSITION SELF SIDE TO SIDE,FALL RISK,BED ON LOWEST POSITION AND LOCKED,BED ALARM,CALL LIGHT IN REACH,NEEDS ANTICIPATED.
[2021-11-27] MEDS: MEROPENEM 1 G in IV NS 0.9% 100 ML IV SCH ×3 (04:34→20:21)
[2021-11-27] MEDS: IV NS 0.9% 1,000 ML IV PRN ×2 (05:12→20:22)
[2021-11-27] MEDS: PANTOPRAZOLE 40 MG TABLET.DR PO SCH (05:18)
--- NOTE | 2021-11-27 06:24 | NUR ---
MS RN NOTES SLEEP WELL AT NIGHT,ALL DUE MEDS ADMINISTERED SCHEDULED,MORNING CARE RENDERED,REPOSITIONED.IVF INFUSING WELL ON RIGHT UPPER ARM PICC LINE,CALL LIGHT IN REACH,NEEDS ATTENDED.
--- NOTE | 2021-11-27 07:00 | NUR ---
MS RN OPENING NOTES RECEIVED PATIENT RESTING IN BED, A/Ox1-2, WITH EPISODES OF CONFUSION AND FORGETFULNESS. ON ROOM AIR NO S/S OF RESPIRATORY DISTRESS. RESPONDS TO VERBAL AND TACTILE STIMULI. IV ACCESS SARAH PICC LINE WITH NS RUNNING @75ML/HR. INTACT AND PATENT, NO S/S OF INFILTRATION. SKIN ISSUES: SACRAL DTI, DRESSING IN PLACE. SAFETY MEASURES IN PLACE: BED LOCKED AND IN LOWEST POSITION, SIDE RAILS UPx2, CALL LIGHT WITHIN REACH, HOB ELEVATED. WILL CONTINUE TO MONITOR.
[2021-11-27 08:00] VITALS: BP 127/62
[2021-11-27] MEDS: APIXABAN 5 MG TABLET PO SCH ×2 (09:00→17:50)
[2021-11-27] MEDS: BRIMONIDINE TARTRATE OPHT SOLN 5 ML BOTTLE OP SCH ×2 (09:00→17:48)
[2021-11-27] MEDS: DILTIAZEM HCL CD 180 MG PO SCH (09:00)
[2021-11-27] MEDS: METOPROLOL TARTRATE 50 MG TABLET PO SCH ×2 (09:00→20:21)
[2021-11-27] MEDS: ENSURE ENLIVE 237 ML LIQUID (VANILLA) PO SCH ×3 (09:00→17:48)
[2021-11-27] MEDS: DOCUSATE SODIUM 100 MG CAPSULE PO SCH ×2 (09:00→20:21)
[2021-11-27] MEDS: NITROGLYCERIN 30 GM TUBE TD SCH ×2 (09:00→20:35)
[2021-11-27] MEDS: hydrALAZINE HCL 25 MG TABLET PO SCH ×2 (09:00→17:48)
[2021-11-27 16:00] VITALS: BP 121/52
[2021-11-27 16:01] VITALS: BP 121/52
[2021-11-27] MEDS: ATORVASTATIN 40 MG TABLET PO SCH (17:48)
--- NOTE | 2021-11-27 19:29 | NUR ---
MS RN CLOSING NOTES PATIENT RESTING IN BED, A/Ox1-2, WITH EPISODES OF CONFUSION AND FORGETFULNESS. STABLE ON ROOM AIR NO S/S OF RESPIRATORY DISTRESS. RESPONDS TO VERBAL AND TACTILE STIMULI. IV ACCESS SARAH PICC LINE WITH NS RUNNING @75ML/HR. INTACT AND PATENT, NO S/S OF INFILTRATION. SKIN ISSUES: SACRAL DTI, DRESSING IN PLACE. ALL PRESCRIBED MEDICATION ADMINISTERED. SAFETY MEASURES MAINTAINED: BED LOCKED AND IN LOWEST POSITION, SIDE RAILS UPx2, CALL LIGHT WITHIN REACH, HOB ELEVATED. WILL ENDORSE TO NEXT SHIFT ANY HERMELINDO.
--- NOTE | 2021-11-27 19:30 | NUR ---
MS RN OPENING NOTE RECEIVED REPORT FROM CECILIA MAYEN FOR [facility]. PATIENT RESTING IN BED, A/O x 1-2, WITH EPISODES OF CONFUSION AND FORGETFULNESS. CURRENTLY ON ROOM AIR, TOLERATING WELL. NO S/SX OF RESPIRATORY DISTRESS NOTED AT THIS TIME. NO SOB, NO PAIN. BREATING IS EVEN AND UNLABORED. RESPONDS TO VERBAL AND TACTILE STIMULI. IV ACCESS NOTED ON SARAH PICC LINE WITH NS RUNNING @75 ML/HR. INTACT AND PATENT, NO S/S OF INFILTRATION. ALL SAFETY MEASURES IN PLACE: BED LOCKED AND IN LOWEST POSITION, BED ALARM ON, SIDE RAILS UPx2, CALL LIGHT WITHIN REACH. WILL CONTINUE TO MONITOR.
[2021-11-27 20:06] VITALS: BP 122/67
[2021-11-28] MEDS: MEROPENEM 1 G in IV NS 0.9% 100 ML IV SCH ×3 (05:04→21:33)
[2021-11-28] MEDS: PANTOPRAZOLE 40 MG TABLET.DR PO SCH (05:04)
--- NOTE | 2021-11-28 06:00 | NUR ---
RN CLOSING NOTE PT REMAINED STABLE T/O THE NIGHT. NO RESPI DISTRESS NOTED. ON RA TOLERATING WELL. ALL DUE MEDS GIVEN. NEEDS ATTENDED. SAFETY MEASURES STILL IN PLACE: BED LOCKED IN LOW POSITION, CALL LIGHT WITHIN REACH. BED ALARM ON. WILL ENDORSE TO AM SHIFT NURSE FOR HERMELINDO.
--- NOTE | 2021-11-28 07:25 | NUR ---
RN OPENING NOTE RECEIVED PATIENT ASLEEP IN BED, EASILY AROUSED. A/O X1-2. NO SIGNS OF ACUTE DISTRESS NOTED. ON ROOM AIR, NO SOB NOTED, BREATHING EVEN AND UNLABORED. DENIES ANY PAIN AT THIS TIME. NOTED WITH RIGHT UPPER ARM PICC LINE, INTACT AND PATENT WITH NS @ 75 ML/HR RUNNING. SAFETY MEASURE IN PLACE. BED IN LOWEST AND LOCKED POSITION, SIDE RAILS UP X2, CALL LIGHT PLACED WITHIN EASY REACH. WILL CONTINUE TO MONITOR PATIENT.
[2021-11-28 08:00] VITALS: BP 136/61
[2021-11-28] MEDS: hydrALAZINE HCL 25 MG TABLET PO SCH ×2 (08:57→17:10)
[2021-11-28] MEDS: DOCUSATE SODIUM 100 MG CAPSULE PO SCH ×2 (08:57→21:53)
[2021-11-28] MEDS: DILTIAZEM HCL CD 180 MG PO SCH (08:57)
[2021-11-28] MEDS: ENSURE ENLIVE 237 ML LIQUID (VANILLA) PO SCH ×3 (08:58→17:10)
[2021-11-28] MEDS: NITROGLYCERIN 30 GM TUBE TD SCH ×2 (08:58→22:21)
[2021-11-28] MEDS: BRIMONIDINE TARTRATE OPHT SOLN 5 ML BOTTLE OP SCH ×2 (08:58→17:10)
[2021-11-28] MEDS: METOPROLOL TARTRATE 50 MG TABLET PO SCH ×2 (08:58→21:54)
[2021-11-28] MEDS: APIXABAN 5 MG TABLET PO SCH ×2 (09:01→17:10)
[2021-11-28 16:00] VITALS: BP 118/49
[2021-11-28] MEDS: ATORVASTATIN 40 MG TABLET PO SCH (17:10)
[2021-11-28] MEDS: IV NS 0.9% 1,000 ML IV PRN (17:14)
--- NOTE | 2021-11-28 18:47 | NUR ---
RN CLOSING NOTES PATIENT RESTING IN BED, EASILY AROUSED. A/O X2. NO SIGNS OF ACUTE DISTRESS NOTED. REMAINS STABLE ON ROOM AIR, NO SOB NOTED, BREATHING EVEN AND UNLABORED. DENIES ANY PAIN AT THIS TIME. RIGHT UPPER ARM PICC LINE, INTACT AND PATENT WITH NS @ 75 ML/HR RUNNING. ALL DUE MEDS GIVEN, TOLERATED WELL. SAFETY MEASURE MAINTAINED. BED IN LOWEST AND LOCKED POSITION, SIDE RAILS UP X2, CALL LIGHT PLACED WITHIN EASY REACH. WILL ENDORSE TO NEXT SHIFT FOR CONTINUITY OF CARE.
[2021-11-28 20:00] VITALS: BP_SYST 10; BP_SYST 104; BP_DIAS 53
[2021-11-28] MEDS: ACETAMINOPHEN 325 MG TABLET PO PRN (22:43)
--- NOTE | 2021-11-28 22:46 | NUR ---
BACK PAIN Patient c/o back pain. BP in low 100's. Given Tylenol, turned and repositioned. Will reassess pain level.
[2021-11-29] MEDS: MEROPENEM 1 G in IV NS 0.9% 100 ML IV SCH (04:51)
--- NOTE | 2021-11-29 06:13 | NUR ---
END OF SHIFT REPORT Patient in bed, awake, stable on room air. SARAH midline intact with good blood returned. IVF infusing, on IV abx. Afebrile throughout shift. Back pain improved with Tylenol. Incontinent care done. Turned and repositioned q 2h, patient refused at times, educated on skin injury prevention. Patient Alert Oriented x2, forgetful. Coccyx, left buttock skin breakdown. Wound care consult. Pending Bld cx. Fall precaution maintained. Will endorse to oncoming RN.
[2021-11-29] MEDS: IV NS 0.9% 1,000 ML IV PRN (06:27)
[2021-11-29] MEDS: PANTOPRAZOLE 40 MG TABLET.DR PO SCH (06:27)
--- NOTE | 2021-11-29 07:30 | NUR ---
MS RN OPENING NOTES RECEIVED PATIENT ON BED AWAKE AND A/O X2-3. ON ROOM AIR TOLERATING WELL. NO SOB NOTED. NOT IN DISTRESS. WITH NO COMPLAINTS OF PAIN OR DISCOMFORT AT THIS TIME. WITH IC ACCESS AT RIGHT UPPER ARM MIDLINE WITH IVF NS AT 75ML/HR INFUSING WELL. SAFETY MEASURES IN PLACED. CALL LIGHT WITHIN REACH. BED ON LOWEST LOCKED POSITION, SIDE RAILS UP X2. WILL CONTINUE TO MONITOR.
[2021-11-29 08:00] VITALS: BP 129/61
[2021-11-29] MEDS: METOPROLOL TARTRATE 50 MG TABLET PO SCH (09:24)
[2021-11-29] MEDS: DILTIAZEM HCL CD 180 MG PO SCH (09:24)
[2021-11-29] MEDS: DOCUSATE SODIUM 100 MG CAPSULE PO SCH (09:24)
[2021-11-29] MEDS: APIXABAN 5 MG TABLET PO SCH (09:25)
[2021-11-29] MEDS: ENSURE ENLIVE 237 ML LIQUID (VANILLA) PO SCH (09:25)
[2021-11-29] MEDS: BRIMONIDINE TARTRATE OPHT SOLN 5 ML BOTTLE OP SCH (09:27)
[2021-11-29] MEDS: NITROGLYCERIN 30 GM TUBE TD SCH (09:28)
[2021-11-29 09:29] VITALS: BP 129/61
[2021-11-29] MEDS: hydrALAZINE HCL 25 MG TABLET PO SCH (09:29)
--- NOTE | 2021-11-29 12:15 | NUR ---
[employer] MANAGER NOTES PATIENT WAS SEEN BY DR. IBARRA AND ORDERED PATIENT FOR DISCHARGE. PATIENT IS FOR DISCHARGE TO SNF. PATIENT IS GOING BACK TO [facility]. GAVE REPORT TO CECILIA PLATT FROM THE FACILITY. PATIENT WAS PICKED UP BY AMBULANCE PERSONNEL IN STABLE CONDITION. IV LINE AND NAME WRIST BAND REMOVED. MD AND CHARGE NURSE ARE AWARE OF THE DISCHARGE.
[2021-11-29] MEDS ORDERED: PROSOURCE / PROSTAT (PYXIS) 30 ML UDC GT SCH (13:00)
== END 2021-11-29 12:40 | DRG 871 ==
LOC: ER 16:01 → TELE 20:35 → MED 11-26 16:46
PROVIDERS: ADMIT Nurse Practitioner Acute Care; ATTEND Internal Medicine
DX: A41.51 Sepsis due to Escherichia coli [E. coli] (principal); G93.41 Metabolic encephalopathy; J15.6 Pneumonia due to other Gram-negative bacteria; N17.0 Acute kidney failure with tubular necrosis; J15.9 Unspecified bacterial pneumonia; E44.0 Moderate protein-calorie malnutrition; D68.59 Other primary thrombophilia; Z16.12 Extended spectrum beta lactamase (ESBL) resistance; Z20.822 Contact with and (suspected) exposure to COVID-19; E11.9 Type 2 diabetes mellitus without complications; E78.5 Hyperlipidemia, unspecified; Z95.5 Presence of coronary angioplasty implant and graft; K21.9 Gastro-esophageal reflux disease without esophagitis; Z79.51 Long term (current) use of inhaled steroids; Z79.01 Long term (current) use of anticoagulants; Z79.899 Other long term (current) drug therapy; Z86.19 Personal history of other infectious and parasitic diseases; I10 Essential (primary) hypertension; E88.09 Other disorders of plasma-protein metabolism, not elsewhere classified; L89.150 Pressure ulcer of sacral region, unstageable; M43.17 Spondylolisthesis, lumbosacral region; Z87.440 Personal history of urinary (tract) infections; Z86.61 Personal history of infections of the central nervous system; Y95 Nosocomial condition; D69.6 Thrombocytopenia, unspecified; Z74.09 Other reduced mobility; Z98.1 Arthrodesis status; M47.817 Spondylosis without myelopathy or radiculopathy, lumbosacral region; M51.36 Other intervertebral disc degeneration, lumbar region
CPT/HCPCS: 36415; 71045-TC; 72158-TC; 73502; 80048-TC; 80076-TC; 80202-TC; 83605-TC; 83735-TC; 84100-TC; 84484-TC; 85025-TC; 85730-TC; 87040-TC; 87081-TC; 87086-TC; 87186-TC; 93307-TC; A9575; C9803; G0378; J2185; J3370; J7030; J7060